=== PATIENT | female | born 1945 | race Caucasian/White ===

== ENCOUNTER 2019-07-18 10:48 | Observation (INO) | payer MEDICARE ==
[~2019-07-18] VITALS: Ht 170.2 cm; Wt 81.8 kg
--- NOTE | 2019-07-18 11:04 | PHYS DOC ---
Adult General HPI HPI Patient is a 73 year old female who was brought here by EMS due to altered mental status. Per report patient could not be awakened by her , she was acting confused, right-sided weakness. Patient has history of diabetes, she is on metformin and glyburide. SHe also has history of HEART valve replacement, history hypertension. She went to bed last night, was normal. Patient ate dinner last night as well. Patient had been on prednisone lately, so she did not eat much because she is worried about gaining weight from taking prednisone. EMS was called, they checked her blood sugar it was 28. She was given sugar pill through her mouth, her blood sugar went up to 38, she became more awake , alert, started talking normally and was able to move her right side. She denies any abdominal pain, no chest pain, no trouble breathing. Patient said she woke up last Tuesday with left eye swelling and with blood in her conjunctiva. Patient is on 500 mg metformin QID AND 10 MG GLIMERIDE IN AM. All other ROS is negative unless otherwise noted in HPI Review of Systems Review of Systems See above Current Medications Current Medications Current Medications Medications (Trade) Dose Ordered Sig/Aidan Start Time Stop Time Status Last Admin Dose Admin Dextrose (Dextrose 50%-Water Syringe) 25 gm 1X ONCE 07/18/19 11:15 07/18/19 11:56 DC 07/18/19 11:29 25 GM Fluconazole (Diflucan) 100 mg 1X ONCE 07/18/19 13:00 07/18/19 13:01 DC Allergies Allergies Allergies Coded Allergies Type Severity Reaction Last Updated Verified Penicillins Allergy Intermediate 07/18/19 Yes Tetracyclines Allergy Intermediate rash 07/18/19 Yes adhesive tape Allergy Intermediate rash 07/18/19 Yes lisinopril Allergy Intermediate cough 07/18/19 Yes sulfamethoxazole Allergy Intermediate 07/18/19 Yes trimethoprim Allergy Intermediate 07/18/19 Yes Physical Exam Physical Exam See above Constitutional: Well developed, well nourished, no acute distress, non-toxic appearance. [] HENT: Normocephalic, atraumatic, bilateral external ears normal, oropharynx moist, no oral exudates, nose normal. [] Eyes: PERRLA, EOMI, LEFT CONJUNCTIVAL INJECTION WITH SUBCONJUNCTIVAL HEMORRHAGE. Neck: Normal range of motion, no tenderness, supple, no stridor. [] Cardiovascular:Heart rate regular rhythm, no murmur [] Lungs & Thorax: Bilateral breath sounds clear to auscultation [] Abdomen: Bowel sounds normal, soft, no tenderness, no masses, no pulsatile masses. [] Skin: Warm, dry, no erythema, no rash. [] Back: No tenderness, no CVA tenderness. [] Extremities: No tenderness, no cyanosis, no clubbing, ROM intact, no edema. [] Neurologic: Alert and oriented X 3, normal motor function, normal sensory function, no focal deficits noted. [] Psychologic: Affect normal, judgement normal, mood normal. [] Current Patient Data Vital Signs Vital Signs Date Time Temp Pulse Resp B/P (MAP) Pulse Ox O2 Delivery O2 Flow Rate FiO2 07/18/19 10:48 97.5 82 20 107/88 (94) 98 Room Air 97.5 Lab Values Laboratory Tests Test 07/18/19 10:50 07/18/19 11:00 07/18/19 12:10 07/18/19 12:12 Glucose (Fingerstick) 25 mg/dL (70-99) *L 203 mg/dL (70-99) H White Blood Count 6.4 x10^3/uL (4.0-11.0) Red Blood Count 3.26 x10^6/uL (3.50-5.40) L Hemoglobin 11.2 g/dL (12.0-15.5) L Hematocrit 34.4 % (36.0-47.0) L Mean Corpuscular Volume 105 fL (79-100) H Mean Corpuscular Hemoglobin 34 pg (25-35) Mean Corpuscular Hemoglobin Concent 33 g/dL (31-37) Red Cell Distribution Width 18.0 % (11.5-14.5) H Platelet Count 185 x10^3/uL (140-400) Neutrophils (%) (Auto) 83 % (31-73) H Lymphocytes (%) (Auto) 10 % (24-48) L Monocytes (%) (Auto) 6 % (0-9) Eosinophils (%) (Auto) 1 % (0-3) Basophils (%) (Auto) 1 % (0-3) Neutrophils # (Auto) 5.4 x10^3/uL (1.8-7.7) Lymphocytes # (Auto) 0.7 x10^3/uL (1.0-4.8) L Monocytes # (Auto) 0.4 x10^3/uL (0.0-1.1) Eosinophils # (Auto) 0.0 x10^3/uL (0.0-0.7) Basophils # (Auto) 0.0 x10^3/uL (0.0-0.2) Prothrombin Time 11.9 SEC (11.7-14.0) Prothrombin Time INR 0.9 (0.8-1.1) Activated Partial Thromboplast Time 27 SEC (24-38) Sodium Level 142 mmol/L (136-145) Potassium Level 4.0 mmol/L (3.5-5.1) Chloride Level 105 mmol/L (98-107) Carbon Dioxide Level 28 mmol/L (21-32) Anion Gap 9 (6-14) Blood Urea Nitrogen 42 mg/dL (7-20) H Creatinine 1.0 mg/dL (0.6-1.0) Estimated GFR (Cockcroft-Gault) 54.5 BUN/Creatinine Ratio 42 (6-20) H Glucose Level 124 mg/dL (70-99) H Calcium Level 9.3 mg/dL (8.5-10.1) Magnesium Level 1.6 mg/dL (1.8-2.4) L Total Bilirubin 0.4 mg/dL (0.2-1.0) Aspartate Amino Transferase (AST) 59 U/L (15-37) H Alanine Aminotransferase (ALT) 90 U/L (14-59) H Alkaline Phosphatase 132 U/L (46-116) H Troponin I Quantitative 0.044 ng/mL (0.000-0.055) LL-Vdj-R-Type Natriuretic Peptide 241 pg/mL (0-124) H Total Protein 8.5 g/dL (6.4-8.2) H Albumin 2.8 g/dL (3.4-5.0) L Albumin/Globulin Ratio 0.5 (1.0-1.7) L Urine Collection Type Unknown Urine Color Yellow Urine Clarity Clear Urine pH 6.5 Urine Specific [place] 1.025 Urine Protein Negative mg/dL (NEG-TRACE) Urine Glucose (UA) 500 mg/dL (NEG) Urine Ketones (Stick) Negative mg/dL (NEG) Urine Blood Negative (NEG) Urine Nitrite Negative (NEG) Urine Bilirubin Negative (NEG) Urine Urobilinogen Dipstick 0.2 mg/dL (0.2 mg/dL) Urine Leukocyte Esterase Moderate (NEG) Urine RBC Occ /HPF (0-2) Urine WBC 11-20 /HPF (0-4) Urine Squamous Epithelial Cells Many /LPF Urine Bacteria Many /HPF (0-FEW) Urine Mucus Slight /LPF Urine Yeast Present /HPF Laboratory Tests 07/18/19 11:00 Laboratory Tests 07/18/19 11:00 EKG EKG [EKG was read by this doctor at 1120, heart rate of 84 beats per minutes, sinus rhythm, no ST elevation. Radiology/Procedures Radiology/Procedures [][facility] [address] [place], [place] [id number] IMAGING REPORT Signed PATIENT: FLOYD SARAH ACCOUNT: [id number] : 1945 LOCATION: ER AGE: 73 SEX: F EXAM STATUS: REG ER ORD. PHYSICIAN: PAVAN ROYAL DO REASON: altered mental status, slurred speech PROCEDURE: CT HEAD WO CONTRAST CT HEAD WITHOUT CONTRAST 07/18/2019 11:53 AM Indication: Altered mental status, slurred speech Comparison: None Procedure: Multidetector CT imaging of the head was performed without the administration of contrast. Findings: No evidence of acute intracranial hemorrhage is identified. No evidence of subacute territorial infarction is seen. Note that CT is limited for evaluation of acute ischemia. If there is continued clinical concern for acute ischemia, MRI offers more sensitive evaluation. There is no acute mass effect or midline shift. The ventricles and basilar cisterns have an unremarkable configuration. No abnormal extra-axial fluid collections are identified. Abnormal mucosal thickening is seen within the right frontal sinus, ethmoid air cells, sphenoid sinuses bilaterally, and partially visualized maxillary sinuses. Probable postsurgical changes to the maxillary sinuses noted. Mild leftward septal deviation appears to be present. Correlate with clinical history. IMPRESSION: 1. No evidence of acute intracranial abnormality 2. Changes of chronic sinus disease as described CT DOSING PQRS STATEMENT: One or more of the following individualized dose reduction techniques were utilized for this examination: 1. Automated exposure control 2. Adjustment of the mA and/or kV according to patient size 3. Use of iterative reconstruction technique Electronically signed by: Hiram Fam MD (07/18/2019 12:07 PM) [id number] DICTATED and SIGNED BY: HIRAM FAM MD DATE: 07/18/19 1200 Course & Med Decision Making Course & Med Decision Making Pertinent Labs and Imaging studies reviewed. (See chart for details) Patient is on long acting diabetic medication, will admit her for observation. Dragon Disclaimer Dragon Disclaimer This electronic medical record was generated, in whole or in part, using a voice recognition dictation system. Departure Departure Impression: Primary Impression: Hypoglycemia associated with type 2 diabetes mellitus Disposition: ADMITTED INPATIENT Admitting Physician: ALICE (DR. DOMINGUEZ) Condition: STABLE PAVAN ROYAL DO Jul 18, 2019 11:04
[2019-07-18] MEDS ORDERED: DEXTROSE 50% 25 GM / 50ML DISP.SYRIN. IV ONE (11:15)
[2019-07-18 11:23] LABS: BASO % 1 % (0-3); EOS % 1 % (0-3); HEMATOCRIT 34.4 % (36.0-47.0); HEMOGLOBIN 11.2 g/dL (12.0-15.5); LYMPH # 0.7 x10^3/uL (1.0-4.8); LYMPH % 10 % (24-48); MEAN CORPUSCULAR HEMOGLOBIN 34 pg (25-35); MEAN CORPUSCULAR HGB CONC 33 g/dL (31-37); MEAN CORPUSCULAR VOLUME 105 fL (79-100); MONO # 0.4 x10^3/uL (0.0-1.1); MONO % 6 % (0-9); NEUT # 5.4 x10^3/uL (1.8-7.7); NEUT % 83 % (31-73); PLATELET COUNT 185 x10^3/uL (140-400); RED BLOOD COUNT 3.26 x10^6/uL (3.50-5.40); WHITE BLOOD COUNT 6.4 x10^3/uL (4.0-11.0)
[2019-07-18 11:29] LABS: CALCIUM 9.3 mg/dL (8.5-10.1); GFR 54.5
--- NOTE | 2019-07-18 11:31 | EKG ---
[facility] [address] [place] [address] Test Date: 2019-07-18 Test Time: 11:19:51 Pat Name: FLOYD SARAH Department: Room: Gender: F [employer]: : 1945 Requested By: PAVAN ROYAL Order Number: [id number] Reading MD: Measurements Intervals [place] Rate: 84 P: 11 MO: 138 QRS: 169 QRSD: 26 T: -37 QT: 364 QTc: 433 Interpretive Statements SINUS RHYTHM ABNORMAL RIGHT AXIS DEVIATION LVH WITH REPOLARIZATION ABNORMALITY QRS(T) CONTOUR ABNORMALITY CONSIDER ANTEROSEPTAL MYOCARDIAL DAMAGE ABNORMAL ECG RI6.01 No previous ECG available for comparison
[2019-07-18 11:34] LABS: ALBUMIN 2.8 g/dL (3.4-5.0); ALBUMIN/GLOBULIN RATIO 0.5 (1.0-1.7); MAGNESIUM 1.6 mg/dL (1.8-2.4); TOTAL BILIRUBIN 0.4 mg/dL (0.2-1.0); TOTAL PROTEIN 8.5 g/dL (6.4-8.2)
--- NOTE | 2019-07-18 11:36 | RAD ---
CHEST AP ONLY Clinical Indication: Shortness of breath Comparison: None. Findings: Portable erect frontal view chest was obtained. Right-sided infusion port catheter port terminates overlying the superior cavoatrial junction. Triple lead left-sided pacemaker is present. Leads are intact and appear to be in place on the basis of the frontal view provided. The cardiomediastinal silhouette is normal. Lungs are clear. There is no pneumothorax. No pleural effusion is appreciated. No acute bone abnormality. IMPRESSION: No acute cardiopulmonary process. Electronically signed by: Parth Hall MD (07/18/2019 11:33 AM) [facility]
[2019-07-18 11:46] LABS: PROTHROMBIN TIME PATIENT 11.9 SEC (11.7-14.0)
--- NOTE | 2019-07-18 12:09 | RAD ---
CT HEAD WITHOUT CONTRAST 07/18/2019 11:53 AM Indication: Altered mental status, slurred speech Comparison: None Procedure: Multidetector CT imaging of the head was performed without the administration of contrast. Findings: No evidence of acute intracranial hemorrhage is identified. No evidence of subacute territorial infarction is seen. Note that CT is limited for evaluation of acute ischemia. If there is continued clinical concern for acute ischemia, MRI offers more sensitive evaluation. There is no acute mass effect or midline shift. The ventricles and basilar cisterns have an unremarkable configuration. No abnormal extra-axial fluid collections are identified. Abnormal mucosal thickening is seen within the right frontal sinus, ethmoid air cells, sphenoid sinuses bilaterally, and partially visualized maxillary sinuses. Probable postsurgical changes to the maxillary sinuses noted. Mild leftward septal deviation appears to be present. Correlate with clinical history. IMPRESSION: 1. No evidence of acute intracranial abnormality 2. Changes of chronic sinus disease as described CT DOSING PQRS STATEMENT: One or more of the following individualized dose reduction techniques were utilized for this examination: 1. Automated exposure control 2. Adjustment of the mA and/or kV according to patient size 3. Use of iterative reconstruction technique Electronically signed by: Hiram Coto MD (07/18/2019 12:07 PM) [facility]
[2019-07-18 12:29] LABS: BILIRUBIN,URINE NEGATIVE (NEG); CLARITY,URINE CLEAR; COLOR,URINE YELLOW; NITRITE,URINE NEGATIVE (NEG); PH,URINE 6.5; PROTEIN,URINE NEGATIVE (NEG-TRACE); UROBILINOGEN,URINE 0.2 mg/dL (0.2 mg/dL)
[2019-07-18 12:42] LABS: BACTERIA,URINE MANY /HPF (0-FEW); RBC,URINE OCC /HPF (0-2); SQUAMOUS EPITHELIAL CELL,UR MANY /LPF
[2019-07-18 12:43] LABS: YEAST,URINE PRESENT /HPF
[2019-07-18] MEDS ORDERED: FLUCONAZOLE 100 MG TABLET. PO ONE (13:00)
--- NOTE | 2019-07-18 14:38 | PDOC1 ---
History and Physical Date of Admission: Date of Admission DATE: 07/18/19 TIME: 14:36 Chief Complaint: Problems: (1) Hypoglycemia associated with type 2 diabetes mellitus Chief Complain: Mental status change with hypoglycemia of 23 History of Present Illness: HPI: This is an elderly patient who is on a sulfonylurea and metformin Basically she developed mental status change and her found her He called ambulance a discovered she had a glucose of 23 P Per report patient could not be awakened by her , she was acting confused, right-sided weakness. Patient has history of diabetes, she is on metformin and glyburide. SHe also has history of HEART valve replacement, history hypertension. She went to bed last night, was normal. Patient ate di nner last night as well. Patient had been on prednisone lately, so she did not eat much because she is worried about gaining weight from taking prednisone. EMS was called, they checked her blood sugar it was 28. She was given sugar pill through her mouth, her blood sugar went up to 38, she became more awake , alert, started talking normally and was able to move her right side. She denies any abdominal pain, no chest pain, no trouble breathing. Patient said she woke up last Tuesday with left eye swelling and with blood in her conjunctiva. Patient is on 500 mg metformin QID AND 10 MG GLIMERIDE IN AM. Past Medical/Surgical History: PMH/PSH: Diabetes hypertension hyperlipidemia Allergies: Allergies: Coded Allergies: Penicillins (Verified Allergy, Intermediate, 07/18/19) rash Tetracyclines (Verified Allergy, Intermediate, rash, 07/18/19) adhesive tape (Verified Allergy, Intermediate, rash, 07/18/19) lisinopril (Verified Allergy, Intermediate, cough, 07/18/19) sulfamethoxazole (Verified Allergy, Intermediate, 07/18/19) rash trimethoprim (Verified Allergy, Intermediate, 07/18/19) rash Family History: Family History: Hypertension diabetes Social History: Social Hisoty: She does not drink smoke or take drugs Current Medications: Current Medications Current Medications Dextrose (Dextrose 50%-Water Syringe) 25 gm 1X ONCE IV Last administered on 07/18/19at 11:29; Start 07/18/19 at 11:15; Stop 07/18/19 at 11:56; Status DC Fluconazole (Diflucan) 100 mg 1X ONCE PO ; Start 07/18/19 at 13:00; Stop 07/18/19 at 13:01; Status DC ROS: Review of Systems Review of System REVIEW OF SYSTEMS: GENERAL: Denies weakness SKIN: No bruising, hair changes or rashes. EYES: No blurred, double or loss of vision. NOSE AND THROAT: No history of nosebleeds, hoarseness or sore throat. HEART: No history of palpitations, chest pain or shortness of breath on exertion. LUNGS: Denies cough, hemoptysis, wheezing or shortness of breath. GASTROINTESTINAL: Denies changes in appetite, nausea, vomiting, diarrhea or constipation. GENITOURINARY: No history of frequency, urgency, hesitancy or nocturia. NEUROLOGIC: Denies history of numbness, tingling, tremor or weakness. PSYCHIATRIC: No history of panic, anxiety or depression. ENDOCRINE: No history of heat or cold intolerance, polyuria or polydipsia. EXTREMITIES: Denies muscle weakness, joint pain, pain on walking or stiffness. Physical Exam: Vital Signs: Vital Signs Date Time Temp Pulse Resp B/P (MAP) Pulse Ox O2 Delivery O2 Flow Rate FiO2 07/18/19 14:00 84 18 123/78 (93) 97 Room Air 07/18/19 10:48 97.5 97.5 Physcial Exam: GEN.: No apparent distress. Alert and oriented. HEENT: Head is normocephalic, atraumatic NECK: Supple, no JVD LUNGS: Clear to auscultation without rhonchi or wheezing HEART: RRR, S1, S2 present. Peripheral pulses intact ABDOMEN: Soft, nontender. Positive bowel sounds no organomegaly EXTREMITIES: Without any cyanosis, clubbing, or edema. Pedal pulses intact NEUROLOGIC: Normal speech, normal tone. A&O x 3 PSYCHIATRIC: Normal affect, normal mood. Stable SKIN: No ulcerations or rashes VASCULAR: Good capillary refill Labs: Labs: Laboratory Tests Test 07/18/19 10:50 07/18/19 11:00 07/18/19 12:10 07/18/19 12:12 Glucose (Fingerstick) 25 mg/dL (70-99) 203 mg/dL (70-99) White Blood Count 6.4 x10^3/uL (4.0-11.0) Red Blood Count 3.26 x10^6/uL (3.50-5.40) Hemoglobin 11.2 g/dL (12.0-15.5) Hematocrit 34.4 % (36.0-47.0) Mean Corpuscular Volume 105 fL (79-100) Mean Corpuscular Hemoglobin 34 pg (25-35) Mean Corpuscular Hemoglobin Concent 33 g/dL (31-37) Red Cell Distribution Width 18.0 % (11.5-14.5) Platelet Count 185 x10^3/uL (140-400) Neutrophils (%) (Auto) 83 % (31-73) Lymphocytes (%) (Auto) 10 % (24-48) Monocytes (%) (Auto) 6 % (0-9) Eosinophils (%) (Auto) 1 % (0-3) Basophils (%) (Auto) 1 % (0-3) Neutrophils # (Auto) 5.4 x10^3/uL (1.8-7.7) Lymphocytes # (Auto) 0.7 x10^3/uL (1.0-4.8) Monocytes # (Auto) 0.4 x10^3/uL (0.0-1.1) Eosinophils # (Auto) 0.0 x10^3/uL (0.0-0.7) Basophils # (Auto) 0.0 x10^3/uL (0.0-0.2) Prothrombin Time 11.9 SEC (11.7-14.0) Prothromb Time International Ratio 0.9 (0.8-1.1) Activated Partial Thromboplast Time 27 SEC (24-38) Sodium Level 142 mmol/L (136-145) Potassium Level 4.0 mmol/L (3.5-5.1) Chloride Level 105 mmol/L (98-107) Carbon Dioxide Level 28 mmol/L (21-32) Anion Gap 9 (6-14) Blood Urea Nitrogen 42 mg/dL (7-20) Creatinine 1.0 mg/dL (0.6-1.0) Estimated GFR (Cockcroft-Gault) 54.5 BUN/Creatinine Ratio 42 (6-20) Glucose Level 124 mg/dL (70-99) Calcium Level 9.3 mg/dL (8.5-10.1) Magnesium Level 1.6 mg/dL (1.8-2.4) Total Bilirubin 0.4 mg/dL (0.2-1.0) Aspartate Amino Transf (AST/SGOT) 59 U/L (15-37) Alanine Aminotransferase (ALT/SGPT) 90 U/L (14-59) Alkaline Phosphatase 132 U/L (46-116) Troponin I Quantitative 0.044 ng/mL (0.000-0.055) WB-Lqo-V-Type Natriuretic Peptide 241 pg/mL (0-124) Total Protein 8.5 g/dL (6.4-8.2) Albumin 2.8 g/dL (3.4-5.0) Albumin/Globulin Ratio 0.5 (1.0-1.7) Urine Collection Type Unknown Urine Color Yellow Urine Clarity Clear Urine pH 6.5 Urine Specific [place] 1.025 Urine Protein Negative mg/dL (NEG-TRACE) Urine Glucose (UA) 500 mg/dL (NEG) Urine Ketones (Stick) Negative mg/dL (NEG) Urine Blood Negative (NEG) Urine Nitrite Negative (NEG) Urine Bilirubin Negative (NEG) Urine Urobilinogen Dipstick 0.2 mg/dL (0.2 mg/dL) Urine Leukocyte Esterase Moderate (NEG) Urine RBC Occ /HPF (0-2) Urine WBC 11-20 /HPF (0-4) Urine Squamous Epithelial Cells Many /LPF Urine Bacteria Many /HPF (0-FEW) Urine Mucus Slight /LPF Urine Yeast Present /HPF Test 07/18/19 14:01 Glucose (Fingerstick) 228 mg/dL (70-99) Laboratory Tests Test 07/18/19 10:50 07/18/19 11:00 07/18/19 12:10 07/18/19 12:12 Glucose (Fingerstick) 25 mg/dL (70-99) 203 mg/dL (70-99) White Blood Count 6.4 x10^3/uL (4.0-11.0) Red Blood Count 3.26 x10^6/uL (3.50-5.40) Hemoglobin 11.2 g/dL (12.0-15.5) Hematocrit 34.4 % (36.0-47.0) Mean Corpuscular Volume 105 fL (79-100) Mean Corpuscular Hemoglobin 34 pg (25-35) Mean Corpuscular Hemoglobin Concent 33 g/dL (31-37) Red Cell Distribution Width 18.0 % (11.5-14.5) Platelet Count 185 x10^3/uL (140-400) Neutrophils (%) (Auto) 83 % (31-73) Lymphocytes (%) (Auto) 10 % (24-48) Monocytes (%) (Auto) 6 % (0-9) Eosinophils (%) (Auto) 1 % (0-3) Basophils (%) (Auto) 1 % (0-3) Neutrophils # (Auto) 5.4 x10^3/uL (1.8-7.7) Lymphocytes # (Auto) 0.7 x10^3/uL (1.0-4.8) Monocytes # (Auto) 0.4 x10^3/uL (0.0-1.1) Eosinophils # (Auto) 0.0 x10^3/uL (0.0-0.7) Basophils # (Auto) 0.0 x10^3/uL (0.0-0.2) Prothrombin Time 11.9 SEC (11.7-14.0) Prothromb Time International Ratio 0.9 (0.8-1.1) Activated Partial Thromboplast Time 27 SEC (24-38) Sodium Level 142 mmol/L (136-145) Potassium Level 4.0 mmol/L (3.5-5.1) Chloride Level 105 mmol/L (98-107) Carbon Dioxide Level 28 mmol/L (21-32) Anion Gap 9 (6-14) Blood Urea Nitrogen 42 mg/dL (7-20) Creatinine 1.0 mg/dL (0.6-1.0) Estimated GFR (Cockcroft-Gault) 54.5 BUN/Creatinine Ratio 42 (6-20) Glucose Level 124 mg/dL (70-99) Calcium Level 9.3 mg/dL (8.5-10.1) Magnesium Level 1.6 mg/dL (1.8-2.4) Total Bilirubin 0.4 mg/dL (0.2-1.0) Aspartate Amino Transf (AST/SGOT) 59 U/L (15-37) Alanine Aminotransferase (ALT/SGPT) 90 U/L (14-59) Alkaline Phosphatase 132 U/L (46-116) Troponin I Quantitative 0.044 ng/mL (0.000-0.055) PQ-Esa-D-Type Natriuretic Peptide 241 pg/mL (0-124) Total Protein 8.5 g/dL (6.4-8.2) Albumin 2.8 g/dL (3.4-5.0) Albumin/Globulin Ratio 0.5 (1.0-1.7) Urine Collection Type Unknown Urine Color Yellow Urine Clarity Clear Urine pH 6.5 Urine Specific [place] 1.025 Urine Protein Negative mg/dL (NEG-TRACE) Urine Glucose (UA) 500 mg/dL (NEG) Urine Ketones (Stick) Negative mg/dL (NEG) Urine Blood Negative (NEG) Urine Nitrite Negative (NEG) Urine Bilirubin Negative (NEG) Urine Urobilinogen Dipstick 0.2 mg/dL (0.2 mg/dL) Urine Leukocyte Esterase Moderate (NEG) Urine RBC Occ /HPF (0-2) Urine WBC 11-20 /HPF (0-4) Urine Squamous Epithelial Cells Many /LPF Urine Bacteria Many /HPF (0-FEW) Urine Mucus Slight /LPF Urine Yeast Present /HPF Test 07/18/19 14:01 Glucose (Fingerstick) 228 mg/dL (70-99) Images: Images Within normal limits Assessment/Plan Assessment/Plan Symptomatic hypoglycemia Plan Cardiac monitoring Hold her sulfonylurea is in metformin Frequent Accu-Cheks Continue her other home medications DVT prophylaxis Full code Hope to discharge in a day or 2 once her glucoses have normalized SHARI DOMINGUEZ III DO Jul 18, 2019 14:38
--- NOTE | 2019-07-18 15:00 | NUR ---
This RN received report from CHELITA Torres in ER. Pt arrived on unit to room 588 by bed. Pt oriented to call light and room. Pt has no concerns, will continue to monitor.
[2019-07-18 19:06] VITALS: BP 132/83
[2019-07-18] MEDS ORDERED: ESTR0.5T PO (20:58)
[2019-07-18] MEDS ORDERED: PANT20TA2 PO (20:58)
[2019-07-18] MEDS ORDERED: LEVO25TA4 PO (20:58)
[2019-07-18] MEDS ORDERED: ASPI-630 PO (20:58)
[2019-07-18] MEDS ORDERED: GLIM1TAB3 PO (20:58)
[2019-07-18] MEDS ORDERED: MAGN400T44 PO (20:58)
[2019-07-18] MEDS ORDERED: DIAZ5TAB4 PO (20:58)
[2019-07-18] MEDS ORDERED: SPIR25TA5 PO (20:58)
[2019-07-18] MEDS ORDERED: PRED20TA PO (20:58)
[2019-07-18] MEDS ORDERED: METO100T7 PO (20:58)
[2019-07-18] MEDS ORDERED: ALLO100T PO (20:58)
[2019-07-18] MEDS ORDERED: FURO40TA4 PO (20:58)
[2019-07-18] MEDS ORDERED: LOSA-73 PO (20:58)
[2019-07-18] MEDS ORDERED: FOLI20CA PO (20:58)
[2019-07-18] MEDS ORDERED: METF500T11 PO (20:58)
[2019-07-18 23:00] VITALS: BP 117/55
[2019-07-19 03:00] VITALS: BP 146/86
[2019-07-19 07:00] VITALS: BP 94/57
--- NOTE | 2019-07-19 08:44 | PDOC ---
PROGRESS NOTES Chief Complaint Chief Complaint Symptomatic hypoglycemia Acute Encephalopathy TIA DM2 Statin-induced myopathy HLD HTN Heart valve surgery Right ocular conjunctivitis Hypomagnesemia Plan Cardiac monitoring Hold her sulfonylurea is in metformin Frequent Accu-Cheks Continue her other home medications DVT prophylaxis Full code Hope to discharge in next day once her glucoses have normalized, needs inpatient for continued dextrose for today, will get D5 with her magnesium infusion History of Present Illness History of Present Illness Ms Jones is a 73yo F w/ PMHx DM2, statin-induced myopathy, HLD, HTN, heart valve surgery who developed acute confusion, right arm weakness, slurred speech and facial droop. Once EMS arrived she was noted with glucose of 23 despite eating and taking chronic prednisone lately. Oral dextrose increased her blood sugar went up to 38. Her blood glucose dropped to 25 by the time she was in ED, was started on dextrose infusion, after whic she became more awake , alert, started talking normally and was able to move her right side. She denies any abdominal pain, no chest pain, no trouble breathing. Patient said she woke up last Tuesday with left eye swelling and with blood in her conjunctiva. Patient is on 500 mg metformin QID AND 10 MG GLIMERIDE IN AM. Admitted for likely sulfonylurea toxicity on D5 infusion. Maintained glucose >100mg/dL overnight. Eye still swollen. Mag level 1.6. She is a bit anxious to leave but fearful of further hypoglycemia given her TIA symptoms initially. Vitals Vitals Vital Signs Date Time Temp Pulse Resp B/P (MAP) Pulse Ox O2 Delivery O2 Flow Rate FiO2 07/19/19 03:00 98.9 102 18 146/86 (106) 96 Room Air 98.9 Physical Exam General: Alert, Oriented X3, Cooperative Heart: Regular rate, Normal S1, Normal S2 Lungs: Clear, Wheezing Abdomen: Normal bowel sounds, Soft Extremities: No clubbing, No cyanosis Skin: No rashes, No breakdown Labs LABS Laboratory Tests Test 07/18/19 10:50 07/18/19 11:00 07/18/19 12:10 07/18/19 12:12 Glucose (Fingerstick) 25 mg/dL (70-99) 203 mg/dL (70-99) White Blood Count 6.4 x10^3/uL (4.0-11.0) Red Blood Count 3.26 x10^6/uL (3.50-5.40) Hemoglobin 11.2 g/dL (12.0-15.5) Hematocrit 34.4 % (36.0-47.0) Mean Corpuscular Volume 105 fL (79-100) Mean Corpuscular Hemoglobin 34 pg (25-35) Mean Corpuscular Hemoglobin Concent 33 g/dL (31-37) Red Cell Distribution Width 18.0 % (11.5-14.5) Platelet Count 185 x10^3/uL (140-400) Neutrophils (%) (Auto) 83 % (31-73) Lymphocytes (%) (Auto) 10 % (24-48) Monocytes (%) (Auto) 6 % (0-9) Eosinophils (%) (Auto) 1 % (0-3) Basophils (%) (Auto) 1 % (0-3) Neutrophils # (Auto) 5.4 x10^3/uL (1.8-7.7) Lymphocytes # (Auto) 0.7 x10^3/uL (1.0-4.8) Monocytes # (Auto) 0.4 x10^3/uL (0.0-1.1) Eosinophils # (Auto) 0.0 x10^3/uL (0.0-0.7) Basophils # (Auto) 0.0 x10^3/uL (0.0-0.2) Prothrombin Time 11.9 SEC (11.7-14.0) Prothromb Time International Ratio 0.9 (0.8-1.1) Activated Partial Thromboplast Time 27 SEC (24-38) Sodium Level 142 mmol/L (136-145) Potassium Level 4.0 mmol/L (3.5-5.1) Chloride Level 105 mmol/L (98-107) Carbon Dioxide Level 28 mmol/L (21-32) Anion Gap 9 (6-14) Blood Urea Nitrogen 42 mg/dL (7-20) Creatinine 1.0 mg/dL (0.6-1.0) Estimated GFR (Cockcroft-Gault) 54.5 BUN/Creatinine Ratio 42 (6-20) Glucose Level 124 mg/dL (70-99) Calcium Level 9.3 mg/dL (8.5-10.1) Magnesium Level 1.6 mg/dL (1.8-2.4) Total Bilirubin 0.4 mg/dL (0.2-1.0) Aspartate Amino Transf (AST/SGOT) 59 U/L (15-37) Alanine Aminotransferase (ALT/SGPT) 90 U/L (14-59) Alkaline Phosphatase 132 U/L (46-116) Troponin I Quantitative 0.044 ng/mL (0.000-0.055) BE-Qmy-I-Type Natriuretic Peptide 241 pg/mL (0-124) Total Protein 8.5 g/dL (6.4-8.2) Albumin 2.8 g/dL (3.4-5.0) Albumin/Globulin Ratio 0.5 (1.0-1.7) Urine Collection Type Unknown Urine Color Yellow Urine Clarity Clear Urine pH 6.5 Urine Specific [place] 1.025 Urine Protein Negative mg/dL (NEG-TRACE) Urine Glucose (UA) 500 mg/dL (NEG) Urine Ketones (Stick) Negative mg/dL (NEG) Urine Blood Negative (NEG) Urine Nitrite Negative (NEG) Urine Bilirubin Negative (NEG) Urine Urobilinogen Dipstick 0.2 mg/dL (0.2 mg/dL) Urine Leukocyte Esterase Moderate (NEG) Urine RBC Occ /HPF (0-2) Urine WBC 11-20 /HPF (0-4) Urine Squamous Epithelial Cells Many /LPF Urine Bacteria Many /HPF (0-FEW) Urine Mucus Slight /LPF Urine Yeast Present /HPF Test 07/18/19 14:01 07/18/19 16:54 07/18/19 20:22 07/19/19 08:02 Glucose (Fingerstick) 228 mg/dL (70-99) 224 mg/dL (70-99) 175 mg/dL (70-99) 113 mg/dL (70-99) Assessment and Plan Assessmemt and Plan Problems Medical Problems: (1) Hypoglycemia associated with type 2 diabetes mellitus Status: Acute Comment Review of Relevant I have reviewed the following items nilo (where applicable) has been applied. Labs Laboratory Tests Test 07/18/19 10:50 07/18/19 11:00 07/18/19 12:10 07/18/19 12:12 Glucose (Fingerstick) 25 mg/dL (70-99) 203 mg/dL (70-99) White Blood Count 6.4 x10^3/uL (4.0-11.0) Red Blood Count 3.26 x10^6/uL (3.50-5.40) Hemoglobin 11.2 g/dL (12.0-15.5) Hematocrit 34.4 % (36.0-47.0) Mean Corpuscular Volume 105 fL (79-100) Mean Corpuscular Hemoglobin 34 pg (25-35) Mean Corpuscular Hemoglobin Concent 33 g/dL (31-37) Red Cell Distribution Width 18.0 % (11.5-14.5) Platelet Count 185 x10^3/uL (140-400) Neutrophils (%) (Auto) 83 % (31-73) Lymphocytes (%) (Auto) 10 % (24-48) Monocytes (%) (Auto) 6 % (0-9) Eosinophils (%) (Auto) 1 % (0-3) Basophils (%) (Auto) 1 % (0-3) Neutrophils # (Auto) 5.4 x10^3/uL (1.8-7.7) Lymphocytes # (Auto) 0.7 x10^3/uL (1.0-4.8) Monocytes # (Auto) 0.4 x10^3/uL (0.0-1.1) Eosinophils # (Auto) 0.0 x10^3/uL (0.0-0.7) Basophils # (Auto) 0.0 x10^3/uL (0.0-0.2) Prothrombin Time 11.9 SEC (11.7-14.0) Prothromb Time International Ratio 0.9 (0.8-1.1) Activated Partial Thromboplast Time 27 SEC (24-38) Sodium Level 142 mmol/L (136-145) Potassium Level 4.0 mmol/L (3.5-5.1) Chloride Level 105 mmol/L (98-107) Carbon Dioxide Level 28 mmol/L (21-32) Anion Gap 9 (6-14) Blood Urea Nitrogen 42 mg/dL (7-20) Creatinine 1.0 mg/dL (0.6-1.0) Estimated GFR (Cockcroft-Gault) 54.5 BUN/Creatinine Ratio 42 (6-20) Glucose Level 124 mg/dL (70-99) Calcium Level 9.3 mg/dL (8.5-10.1) Magnesium Level 1.6 mg/dL (1.8-2.4) Total Bilirubin 0.4 mg/dL (0.2-1.0) Aspartate Amino Transf (AST/SGOT) 59 U/L (15-37) Alanine Aminotransferase (ALT/SGPT) 90 U/L (14-59) Alkaline Phosphatase 132 U/L (46-116) Troponin I Quantitative 0.044 ng/mL (0.000-0.055) GT-Kuo-K-Type Natriuretic Peptide 241 pg/mL (0-124) Total Protein 8.5 g/dL (6.4-8.2) Albumin 2.8 g/dL (3.4-5.0) Albumin/Globulin Ratio 0.5 (1.0-1.7) Urine Collection Type Unknown Urine Color Yellow Urine Clarity Clear Urine pH 6.5 Urine Specific [place] 1.025 Urine Protein Negative mg/dL (NEG-TRACE) Urine Glucose (UA) 500 mg/dL (NEG) Urine Ketones (Stick) Negative mg/dL (NEG) Urine Blood Negative (NEG) Urine Nitrite Negative (NEG) Urine Bilirubin Negative (NEG) Urine Urobilinogen Dipstick 0.2 mg/dL (0.2 mg/dL) Urine Leukocyte Esterase Moderate (NEG) Urine RBC Occ /HPF (0-2) Urine WBC 11-20 /HPF (0-4) Urine Squamous Epithelial Cells Many /LPF Urine Bacteria Many /HPF (0-FEW) Urine Mucus Slight /LPF Urine Yeast Present /HPF Test 07/18/19 14:01 07/18/19 16:54 07/18/19 20:22 07/19/19 08:02 Glucose (Fingerstick) 228 mg/dL (70-99) 224 mg/dL (70-99) 175 mg/dL (70-99) 113 mg/dL (70-99) Laboratory Tests Test 07/18/19 10:50 07/18/19 11:00 07/18/19 12:10 07/18/19 12:12 Glucose (Fingerstick) 25 mg/dL (70-99) 203 mg/dL (70-99) White Blood Count 6.4 x10^3/uL (4.0-11.0) Red Blood Count 3.26 x10^6/uL (3.50-5.40) Hemoglobin 11.2 g/dL (12.0-15.5) Hematocrit 34.4 % (36.0-47.0) Mean Corpuscular Volume 105 fL (79-100) Mean Corpuscular Hemoglobin 34 pg (25-35) Mean Corpuscular Hemoglobin Concent 33 g/dL (31-37) Red Cell Distribution Width 18.0 % (11.5-14.5) Platelet Count 185 x10^3/uL (140-400) Neutrophils (%) (Auto) 83 % (31-73) Lymphocytes (%) (Auto) 10 % (24-48) Monocytes (%) (Auto) 6 % (0-9) Eosinophils (%) (Auto) 1 % (0-3) Basophils (%) (Auto) 1 % (0-3) Neutrophils # (Auto) 5.4 x10^3/uL (1.8-7.7) Lymphocytes # (Auto) 0.7 x10^3/uL (1.0-4.8) Monocytes # (Auto) 0.4 x10^3/uL (0.0-1.1) Eosinophils # (Auto) 0.0 x10^3/uL (0.0-0.7) Basophils # (Auto) 0.0 x10^3/uL (0.0-0.2) Prothrombin Time 11.9 SEC (11.7-14.0) Prothromb Time International Ratio 0.9 (0.8-1.1) Activated Partial Thromboplast Time 27 SEC (24-38) Sodium Level 142 mmol/L (136-145) Potassium Level 4.0 mmol/L (3.5-5.1) Chloride Level 105 mmol/L (98-107) Carbon Dioxide Level 28 mmol/L (21-32) Anion Gap 9 (6-14) Blood Urea Nitrogen 42 mg/dL (7-20) Creatinine 1.0 mg/dL (0.6-1.0) Estimated GFR (Cockcroft-Gault) 54.5 BUN/Creatinine Ratio 42 (6-20) Glucose Level 124 mg/dL (70-99) Calcium Level 9.3 mg/dL (8.5-10.1) Magnesium Level 1.6 mg/dL (1.8-2.4) Total Bilirubin 0.4 mg/dL (0.2-1.0) Aspartate Amino Transf (AST/SGOT) 59 U/L (15-37) Alanine Aminotransferase (ALT/SGPT) 90 U/L (14-59) Alkaline Phosphatase 132 U/L (46-116) Troponin I Quantitative 0.044 ng/mL (0.000-0.055) GV-Jlr-I-Type Natriuretic Peptide 241 pg/mL (0-124) Total Protein 8.5 g/dL (6.4-8.2) Albumin 2.8 g/dL (3.4-5.0) Albumin/Globulin Ratio 0.5 (1.0-1.7) Urine Collection Type Unknown Urine Color Yellow Urine Clarity Clear Urine pH 6.5 Urine Specific [place] 1.025 Urine Protein Negative mg/dL (NEG-TRACE) Urine Glucose (UA) 500 mg/dL (NEG) Urine Ketones (Stick) Negative mg/dL (NEG) Urine Blood Negative (NEG) Urine Nitrite Negative (NEG) Urine Bilirubin Negative (NEG) Urine Urobilinogen Dipstick 0.2 mg/dL (0.2 mg/dL) Urine Leukocyte Esterase Moderate (NEG) Urine RBC Occ /HPF (0-2) Urine WBC 11-20 /HPF (0-4) Urine Squamous Epithelial Cells Many /LPF Urine Bacteria Many /HPF (0-FEW) Urine Mucus Slight /LPF Urine Yeast Present /HPF Test 07/18/19 14:01 07/18/19 16:54 07/18/19 20:22 07/19/19 08:02 Glucose (Fingerstick) 228 mg/dL (70-99) 224 mg/dL (70-99) 175 mg/dL (70-99) 113 mg/dL (70-99) Medications Current Medications Dextrose (Dextrose 50%-Water Syringe) 25 gm 1X ONCE IV Last administered on 07/18/19at 11:29; Start 07/18/19 at 11:15; Stop 07/18/19 at 11:56; Status DC Fluconazole (Diflucan) 100 mg 1X ONCE PO Last administered on 07/18/19at 16:35; Start 07/18/19 at 13:00; Stop 07/18/19 at 13:01; Status DC Magnesium Sulfate 100 ml @ 25 mls/hr 1X ONCE IV ; Start 07/19/19 at 08:45; Stop 07/19/19 at 12:44; Status UNV Active Scripts Active Reported Diazepam 5 Mg Tablet 5 Mg PO DAILY Metoprolol Tartrate 100 Mg Tablet 100 Mg PO DAILY Losartan Potassium 50 Mg Tablet 50 Mg PO DAILY Aspirin 81 Mg Tab.chew 81 Mg PO DAILY Prednisone 20 Mg Tablet 10 Mg PO DAILYWBKFT Protonix (Pantoprazole Sodium) 20 Mg Tablet.dr 1 Tab PO DAILY Folic Acid 20 Mg Capsule 1 Cap PO DAILY 30 Days Furosemide 40 Mg Tablet 40 Mg PO DAILY Magnesium Oxide 400 Mg Tablet 400 Mg PO DAILY Glimepiride 1 Mg Tablet 2 Tab PO DAILYWBKFT Metformin Hcl Er (Metformin Hcl) 500 Mg Tab.er.24h 500 Mg PO BIDWMEALS Allopurinol 100 Mg Tablet 100 Mg PO BID Estradiol 0.5 Mg Tablet 0.5 Mg PO DAILY Spironolactone 25 Mg Tablet 25 Mg PO DAILY Levothyroxine Sodium 25 Mcg Tablet 75 Mcg PO DAILYAC PRN Vitals/I & O Vital Sign - Last 24 Hours 07/18/19 07/18/19 07/18/19 07/18/19 10:48 11:30 12:00 12:30 Temp 97.5 97.5 Pulse 82 84 82 92 Resp 20 20 20 20 B/P (MAP) 107/88 (94) 130/74 (92) 139/85 (103) 122/84 (97) Pulse Ox 98 99 99 97 O2 Delivery Room Air Room Air Room Air Room Air 07/18/19 07/18/19 07/18/19 07/18/19 13:00 13:30 14:00 16:00 Pulse 92 96 84 Resp 20 18 18 B/P (MAP) 117/79 (92) 120/80 (93) 123/78 (93) Pulse Ox 99 99 97 O2 Delivery Room Air Room Air Room Air Room Air 07/18/19 07/18/19 07/18/19 07/19/19 19:06 19:48 23:00 03:00 Temp 97.9 98.0 98.9 97.9 98.0 98.9 Pulse 99 93 102 Resp 18 17 18 B/P (MAP) 132/83 (99) 117/55 (75) 146/86 (106) Pulse Ox 96 96 96 O2 Delivery Room Air Room Air Room Air Room Air SARA ULRICH MD Jul 19, 2019 08:44
[2019-07-19] MEDS ORDERED: MAGNESIUM SULFATE 4GM 100 ML IV ONE (09:00)
[2019-07-19] MEDS ORDERED: LEVOTHYROXINE 75 MCG TABLET PO SCH (09:30)
[2019-07-19] MEDS ORDERED: LOSARTAN POTASSIUM 50 MG TABLET. PO SCH (09:30)
[2019-07-19] MEDS ORDERED: ASPIRIN CHEWABLE 81 MG TABLET. PO SCH (09:30)
[2019-07-19] MEDS ORDERED: SPIRONOLACTONE 25 MG TABLET PO SCH (09:30)
[2019-07-19] MEDS ORDERED: METOPROLOL TART IMMED RELEASE 25 MG TABLET. PO SCH (09:30)
[2019-07-19] MEDS ORDERED: predniSONE 10 MG TABLET PO SCH (09:30)
[2019-07-19] MEDS ORDERED: ALLOPURINOL 100 MG TABLET. PO SCH (09:30)
[2019-07-19] MEDS ORDERED: diazePAM 5 MG TABLET PO PRN (09:30)
[2019-07-19] MEDS ORDERED: MAGNESIUM OXIDE 400 MG TABLET PO SCH (09:30)
[2019-07-19] MEDS ORDERED: PANTOPRAZOLE 40 MG TABLET.DR. PO SCH (09:30)
[2019-07-19] MEDS ORDERED: FOLIC ACID 1 MG TABLET. PO SCH (09:30)
[2019-07-19 11:00] VITALS: BP 125/59
--- NOTE | 2019-07-19 14:08 | NUR ---
SW following for discharge planning. Discussed with RN, pt is from home with spouse. Per RN, pt gets around fine. RN advised no SW needs at this time. SW will continue to follow should any needs arise.
[2019-07-19 15:00] VITALS: BP 122/89
--- NOTE | 2019-07-19 17:00 | PDOC3 ---
Discharge Summary Visit Information Date of Admission: Jul 18, 2019 Date of Discharge: Jul 19, 2019 Admitting Diagnosis: Symptomatic hypoglycemia Final Diagnosis Problems Medical Problems: (1) Hypoglycemia associated with type 2 diabetes mellitus Status: Acute Brief Hospital Course Allergies Allergies Coded Allergies Type Severity Reaction Last Updated Verified Penicillins Allergy Intermediate 07/18/19 Yes Tetracyclines Allergy Intermediate rash 07/18/19 Yes adhesive tape Allergy Intermediate rash 07/18/19 Yes lisinopril Allergy Intermediate cough 07/18/19 Yes sulfamethoxazole Allergy Intermediate 07/18/19 Yes trimethoprim Allergy Intermediate 07/18/19 Yes Vital Signs Vital Signs Date Time Temp Pulse Resp B/P (MAP) Pulse Ox O2 Delivery O2 Flow Rate FiO2 07/19/19 15:00 97.7 104 18 122/89 (100) 97 97.7 07/19/19 08:00 Room Air Lab Results Laboratory Tests Test 07/18/19 10:50 07/18/19 11:00 07/18/19 12:10 07/18/19 12:12 Glucose (Fingerstick) 25 mg/dL (70-99) 203 mg/dL (70-99) White Blood Count 6.4 x10^3/uL (4.0-11.0) Red Blood Count 3.26 x10^6/uL (3.50-5.40) Hemoglobin 11.2 g/dL (12.0-15.5) Hematocrit 34.4 % (36.0-47.0) Mean Corpuscular Volume 105 fL (79-100) Mean Corpuscular Hemoglobin 34 pg (25-35) Mean Corpuscular Hemoglobin Concent 33 g/dL (31-37) Red Cell Distribution Width 18.0 % (11.5-14.5) Platelet Count 185 x10^3/uL (140-400) Neutrophils (%) (Auto) 83 % (31-73) Lymphocytes (%) (Auto) 10 % (24-48) Monocytes (%) (Auto) 6 % (0-9) Eosinophils (%) (Auto) 1 % (0-3) Basophils (%) (Auto) 1 % (0-3) Neutrophils # (Auto) 5.4 x10^3/uL (1.8-7.7) Lymphocytes # (Auto) 0.7 x10^3/uL (1.0-4.8) Monocytes # (Auto) 0.4 x10^3/uL (0.0-1.1) Eosinophils # (Auto) 0.0 x10^3/uL (0.0-0.7) Basophils # (Auto) 0.0 x10^3/uL (0.0-0.2) Prothrombin Time 11.9 SEC (11.7-14.0) Prothromb Time International Ratio 0.9 (0.8-1.1) Activated Partial Thromboplast Time 27 SEC (24-38) Sodium Level 142 mmol/L (136-145) Potassium Level 4.0 mmol/L (3.5-5.1) Chloride Level 105 mmol/L (98-107) Carbon Dioxide Level 28 mmol/L (21-32) Anion Gap 9 (6-14) Blood Urea Nitrogen 42 mg/dL (7-20) Creatinine 1.0 mg/dL (0.6-1.0) Estimated GFR (Cockcroft-Gault) 54.5 BUN/Creatinine Ratio 42 (6-20) Glucose Level 124 mg/dL (70-99) Calcium Level 9.3 mg/dL (8.5-10.1) Magnesium Level 1.6 mg/dL (1.8-2.4) Total Bilirubin 0.4 mg/dL (0.2-1.0) Aspartate Amino Transf (AST/SGOT) 59 U/L (15-37) Alanine Aminotransferase (ALT/SGPT) 90 U/L (14-59) Alkaline Phosphatase 132 U/L (46-116) Troponin I Quantitative 0.044 ng/mL (0.000-0.055) HU-Qur-J-Type Natriuretic Peptide 241 pg/mL (0-124) Total Protein 8.5 g/dL (6.4-8.2) Albumin 2.8 g/dL (3.4-5.0) Albumin/Globulin Ratio 0.5 (1.0-1.7) Urine Collection Type Unknown Urine Color Yellow Urine Clarity Clear Urine pH 6.5 Urine Specific [place] 1.025 Urine Protein Negative mg/dL (NEG-TRACE) Urine Glucose (UA) 500 mg/dL (NEG) Urine Ketones (Stick) Negative mg/dL (NEG) Urine Blood Negative (NEG) Urine Nitrite Negative (NEG) Urine Bilirubin Negative (NEG) Urine Urobilinogen Dipstick 0.2 mg/dL (0.2 mg/dL) Urine Leukocyte Esterase Moderate (NEG) Urine RBC Occ /HPF (0-2) Urine WBC 11-20 /HPF (0-4) Urine Squamous Epithelial Cells Many /LPF Urine Bacteria Many /HPF (0-FEW) Urine Mucus Slight /LPF Urine Yeast Present /HPF Test 07/18/19 14:01 07/18/19 16:54 07/18/19 20:22 07/19/19 08:02 Glucose (Fingerstick) 228 mg/dL (70-99) 224 mg/dL (70-99) 175 mg/dL (70-99) 113 mg/dL (70-99) Test 07/19/19 11:51 Glucose (Fingerstick) 152 mg/dL (70-99) Laboratory Tests Test 07/18/19 20:22 07/19/19 08:02 07/19/19 11:51 Glucose (Fingerstick) 175 mg/dL (70-99) 113 mg/dL (70-99) 152 mg/dL (70-99) Brief Hospital Course Ms Jones is a 73yo F w/ PMHx DM2, statin-induced myopathy, HLD, HTN, heart valve surgery who developed acute confusion, right arm weakness, slurred speech and facial droop. Once EMS arrived she was noted with glucose of 23 despite eating and taking chronic prednisone lately. Oral dextrose increased her blood sugar went up to 38. Her blood glucose dropped to 25 by the time she was in ED, was started on dextrose infusion, after whic she became more awake , alert, started talking normally and was able to move her right side. She denies any abdominal pain, no chest pain, no trouble breathing. Patient said she woke up last Tuesday with left eye swelling and with blood in her conjunctiva. Patient is on 500 mg metformin QID AND 10 MG GLIMERIDE IN AM on 07/18/19. Admitted for likely sulfonylurea toxicity on D5 infusion. Maintained glucose >100mg/dL overnight. Eye still swollen. Mag level 1.6, corrected. She is a bit anxious to leave but fearful of further hypoglycemia given her TIA symptoms initially. Given a blood glucose of 254 after 2 hours fasting almost 36 hours after manriquez lfonylurea overdose she is advised she may be discharge, but check blood glucose prior to bed tonight. Symptomatic hypoglycemia Acute Encephalopathy TIA DM2 Statin-induced myopathy HLD HTN Heart valve surgery Right ocular conjunctivitis Hypomagnesemia Greater than 30 minutes spent on d/c day Discharge Information Condition at Discharge: Improved Follow Up: Weeks (1) Disposition/Orders: D/C to Home Scheduled Allopurinol (Allopurinol) 100 Mg Tablet, 100 MG PO BID for gout, (Reported) Entered as Reported by: OSEAS WADDELL on 07/18/192057 Last Action: Continued on 07/19/19928 by SARA ULRICH MD Aspirin (Aspirin) 81 Mg Tab.chew, 81 MG PO DAILY for heart, (Reported) Entered as Reported by: OSEAS WADDELL on 07/18/192057 Last Action: Continued on 07/19/19928 by SARA ULRICH MD Diazepam (Diazepam) 5 Mg Tablet, 5 MG PO DAILY for anxiety, (Reported) Entered as Reported by: OSEAS WADDELL on 07/18/192057 Last Action: Continued on 07/19/19928 by SARA ULRICH MD Estradiol (Estradiol) 0.5 Mg Tablet, 0.5 MG PO DAILY for estrogen derivitive, (Reported) Entered as Reported by: OSEAS WADDELL on 07/18/192057 Last Action: New Order on 07/18/192057 by OSEAS WADDELL Folic Acid (Folic Acid) 20 Mg Capsule, 1 CAP PO DAILY for supplementation for 30 Days, #30 Ref 0 (Reported) Entered as Reported by: OSEAS WADDELL on 07/18/192057 Last Action: Converted on 07/19/19928 by SARA ULRICH MD Furosemide (Furosemide) 40 Mg Tablet, 40 MG PO DAILY for fluid retention, (Reported) Entered as Reported by: OSEAS WADDELL on 07/18/192057 Last Action: HELD on 07/19/19928 by SARA ULRICH MD Losartan Potassium (Losartan Potassium) 50 Mg Tablet, 50 MG PO DAILY for HYPERTENSION, (Reported) Entered as Reported by: OSEAS WADDELL on 07/18/192057 Last Action: Continued on 07/19/19928 by SARA ULRICH MD Magnesium Oxide (Magnesium Oxide) 400 Mg Tablet, 400 MG PO DAILY for mag replacement, (Reported) Entered as Reported by: OSEAS WADDELL on 07/18/192057 Last Action: Converted on 07/19/19928 by SARA ULRICH MD Metformin Hcl (Metformin Hcl Er) 500 Mg Tab.er.24h, 500 MG PO BIDWMEALS for diabetes, (Reported) Entered as Reported by: OSEAS WADDELL on 07/18/192057 Last Action: HELD on 07/19/19928 by SARA ULRICH MD Metoprolol Tartrate (Metoprolol Tartrate) 100 Mg Tablet, 100 MG PO DAILY for FOR HYPERTENSION, #60 Ref 0 (Reported) Entered as Reported by: OSEAS WADDELL on 07/18/192057 Last Action: Converted on 07/19/19928 by SARA ULRICH MD Pantoprazole Sodium (Protonix) 20 Mg Tablet.dr, 1 TAB PO DAILY for GERD, #30 (Reported) Entered as Reported by: OSEAS WADDELL on 07/18/192057 Last Action: Converted on 07/19/19928 by SARA ULRICH MD Prednisone (Prednisone) 20 Mg Tablet, 10 MG PO DAILYWBKFT for inflammation, (Reported) Entered as Reported by: OSEAS WADDELL on 07/18/192057 Last Action: Continued on 07/19/19928 by SARA ULRICH MD Spironolactone (Spironolactone) 25 Mg Tablet, 25 MG PO DAILY for diuretic, (Reported) Entered as Reported by: OSEAS WADDELL on 07/18/192057 Last Action: Continued on 07/19/19928 by SARA ULRICH MD Scheduled PRN Levothyroxine Sodium (Levothyroxine Sodium) 25 Mcg Tablet, 75 MCG PO DAILYAC PRN for hypothyroidism, #30 Ref 0 (Reported) Entered as Reported by: OSEAS WADDELL on 07/18/192057 Last Action: Continued on 07/19/19928 by SARA ULRICH MD Discontinued Medications Glimepiride (Glimepiride) 1 Mg Tablet, 2 TAB PO DAILYWBKFT for diabetes, #30 Ref 5 (Reported) Entered as Reported by: OSEAS WADDELL on 07/18/192057 Last Action: HELD on 07/19/19928 by MD MOJGAN BOUCHER CHRISTOPHER S MD Jul 19, 2019 17:00
[2019-07-19] MEDS ORDERED: HEPARIN PF 500 UNIT/5 ML DISP.SYRIN. IVP ONE (17:30)
--- NOTE | 2019-07-19 18:18 | NUR ---
Pt left unit by wheelchair via private vehicle at approx 1810. Pt port deaccessed and flushed with heparin. Discharge paperwork discussed, no additional concerns. Pt stable upon discharge.
== END 2019-07-19 18:30 | disposition home or self-care (01) ==
LOC: ER 10:48 → 5 SOUTH 12:45 → OBSVTOIN 07-19 13:02 → INTOOBSV 07-19 13:02
PROVIDERS: ADMIT Internal Medicine; ATTEND Internal Medicine
DX: E11.649 Type 2 diabetes mellitus with hypoglycemia without coma (principal); G93.40 Encephalopathy, unspecified; G45.9 Transient cerebral ischemic attack, unspecified; E78.5 Hyperlipidemia, unspecified; I10 Essential (primary) hypertension; E83.42 Hypomagnesemia; H10.89 Other conjunctivitis; G72.0 Drug-induced myopathy; Z79.84 Long term (current) use of oral hypoglycemic drugs
CPT/HCPCS: 36415; 70450; 71045; 80053; 81001; 82962; 83735; 83880; 84484; 85025; 85610; 85730; 87086; 93005; 96365; 96366; 96375; 99284; G0378; G0379; J3475; J7042; J7512; 96374; 99285-25

== ENCOUNTER 2020-09-03 16:33 | Inpatient (IN) | payer MEDICARE ==
[~2020-09-03] VITALS: Ht 170.2 cm; Wt 76.2 kg
[~2020-09-03 16:33] MED LIST: ALLO100T PO; ASPI-630 PO; DIAZ5TAB4 PO; ESTR0.5T PO; FOLIC ACID20 MG PO; FURO40TA4 PO; GLIM1TAB7 PO; LEVO25TA4 PO; LOSA-73 PO; MAGN400T44 PO; METF-658 PO; METO100T7 PO; PANT20TA2 PO; PRED20TA PO; SPIR25TA5 PO
[2020-09-03] MEDS ORDERED: IV NORMAL SALINE 1000ML BAG 1,000 ML IV ONE (17:00)
[2020-09-03] MEDS ORDERED: DEXAMETHASONE SOD PHOS 20 MG/5 ML VIAL. IV ONE (17:00)
[2020-09-03 17:14] LABS: BASO % 0 % (0-3); EOS % 0 % (0-3); HEMATOCRIT 36.5 % (36.0-47.0); LYMPH # 0.3 x10^3/uL (1.0-4.8); LYMPH % 7 % (24-48); MEAN CORPUSCULAR HEMOGLOBIN 32 pg (25-35); MEAN CORPUSCULAR HGB CONC 33 g/dL (31-37); MEAN CORPUSCULAR VOLUME 99 fL (79-100); MONO # 0.4 x10^3/uL (0.0-1.1); MONO % 12 % (0-9); NEUT # 2.8 x10^3/uL (1.8-7.7); NEUT % 80 % (31-73); PLATELET COUNT 161 x10^3/uL (140-400); RED CELL DISTRIBUTION WIDTH 21.8 % (11.5-14.5); WHITE BLOOD COUNT 3.5 x10^3/uL (4.0-11.0)
--- NOTE | 2020-09-03 17:28 | RAD ---
EXAM: CHEST 1 VIEW History: Cough COMPARISON: 07/18/2019 TECHNIQUE: Single portable radiograph of the chest FINDINGS: Low lung volumes and technique accentuates heart size and pulmonary vascularity . Right-si ded Port-A-Cath is again identified. Left-sided cardiac pacer is identified with. Moderate prominent bilateral interstitial lung markings mild bibasilar lung airspace opacities likely atelectasis or inf iltrates left greater than left. IMPRESSION: . 1. Mild congestive changes. 2. Mild bibasilar lung airspace opacities likely atelectasis or infiltrates left greater than right. Electronically signed by: Fredrick Pardo MD (09/03/2020 5:25 PM) [id number]
[2020-09-03 17:33] LABS: GFR 54.3; POTASSIUM 4.2 mmol/L (3.5-5.1)
[2020-09-03 17:38] LABS: ALBUMIN 2.7 g/dL (3.4-5.0); ALBUMIN/GLOBULIN RATIO 0.6 (1.0-1.7); MAGNESIUM 1.6 mg/dL (1.8-2.4); TOTAL BILIRUBIN 0.6 mg/dL (0.2-1.0); TOTAL PROTEIN 7.6 g/dL (6.4-8.2)
[2020-09-03 18:59] LABS: ANISOCYTOSIS MOD; PLT ESTIMATE ADEQUATE (ADEQUATE)
[2020-09-03 19:00] LABS: POIKILOCYTOSIS SLIGHT; SPHEROCYTES OCC; TEAR DROP CELLS FEW
[2020-09-03 19:01] LABS: OVALOCYTES OCC; SCHISTOCYTES OCC
--- NOTE | 2020-09-03 20:17 | PHYS DOC ---
Past Medical History Past Medical History: Diabetes-Type II, High Cholesterol, Hypertension, Hypothyroid, Other Additional Past Medical Histor: statin myopathy, meningitis Past Surgical History: Cholecystectomy, Hysterectomy, Pacemaker, Tonsillectomy, Other Additional Past Surgical Histo: tricuspid valve replacement, Smoking Status: Never Smoker Alcohol Use: None Drug Use: None General Adult EDM: Chief Complaint: FATIGUE HPI: HPI: Patient is a 74 year old history of high cholesterol, hypertension, diabetes type 2, who presents to the ED today complaining of fatigue, generalized weakness, cough, shortness of breath, symptoms for 1 week. Patient states she was diagnosed with COVID-19 on Tuesday which is 4 days ago, she states she resides at home with her who is unable to take care of her because he also has COVID-19. Patient denies any fever. Review of Systems: Review of Systems: Constitutional: Reports fatigue and generalized weakness. Denies fever or chills. [] Eyes: Denies change in visual acuity. [] HENT: Denies nasal congestion or sore throat. [] Respiratory: Reports cough and shortness of breath Cardiovascular: Denies chest pain or edema. [] GI: Denies abdominal pain, nausea, vomiting, bloody stools or diarrhea. [] : Denies dysuria. [] Musculoskeletal: Denies back pain or joint pain. [] Integument: Denies rash. [] Neurologic: Denies headache, focal weakness or sensory changes. [] Psychiatric: Denies depression or anxiety. [] Heart Score: Risk Factors: Risk Factors: DM, Current or recent (<one month) smoker, HTN, HLP, family history of CAD, obesity. Risk Scores: Score 0 - 3: 2.5% MACE over next 6 weeks - Discharge Home Score 4 - 6: 20.3% MACE over next 6 weeks - Admit for Clinical Observation Score 7 - 10: 72.7% MACE over next 6 weeks - Early Invasive Strategies Current Medications: Current Medications Medications (Trade) Dose Ordered Sig/Aidan Start Time Stop Time Status Last Admin Dose Admin Dexamethasone Sodium Phosphate (Decadron) 10 mg 1X ONCE 09/03/20 17:00 09/03/20 17:01 DC 09/03/20 17:29 10 MG Levofloxacin/ Dextrose 100 ml @ 100 mls/hr 1X ONCE 09/03/20 19:00 09/03/20 19:59 DC Sodium Chloride 1,000 ml @ 1,000 mls/hr 1X ONCE 09/03/20 17:00 09/03/20 17:59 DC 09/03/20 17:27 1,000 MLS/HR Allergies: Allergies: Allergies Coded Allergies Type Severity Reaction Last Updated Verified Penicillins Allergy Intermediate 07/18/19 Yes Tetracyclines Allergy Intermediate rash 07/18/19 Yes adhesive tape Allergy Intermediate rash 07/18/19 Yes lisinopril Allergy Intermediate cough 07/18/19 Yes sulfamethoxazole Allergy Intermediate 07/18/19 Yes trimethoprim Allergy Intermediate 07/18/19 Yes cephalexin Allergy Unknown 09/03/20 Yes Physical Exam: PE: Constitutional: Well developed, well nourished, no acute distress, non-toxic appearance. [] HENT: Normocephalic, atraumatic, bilateral external ears normal, oropharynx moist, no oral exudates, nose normal. [] Eyes: PERRLA, EOMI, conjunctiva normal, no discharge. [] Neck: Normal range of motion, no tenderness, supple, no stridor. [] Cardiovascular:Heart rate regular rhythm, no murmur [] Lungs & Thorax: Bilateral breath sounds clear to auscultation [] Abdomen: Bowel sounds normal, soft, no tenderness, no masses, no pulsatile masses. [] Skin: Warm, dry, no erythema, no rash. [] Back: No tenderness, no CVA tenderness. [] Extremities: No tenderness, no cyanosis, no clubbing, ROM intact, no edema. [] Neurologic: Alert and oriented X 3, normal motor function, normal sensory function, no focal deficits noted. [] Psychologic: Affect normal, judgement normal, mood normal. [] Current Patient Data: Labs: Laboratory Tests Test 09/03/20 16:50 White Blood Count 3.5 x10^3/uL (4.0-11.0) L Red Blood Count 3.70 x10^6/uL (3.50-5.40) Hemoglobin 12.0 g/dL (12.0-15.5) Hematocrit 36.5 % (36.0-47.0) Mean Corpuscular Volume 99 fL (79-100) Mean Corpuscular Hemoglobin 32 pg (25-35) Mean Corpuscular Hemoglobin Concent 33 g/dL (31-37) Red Cell Distribution Width 21.8 % (11.5-14.5) H Platelet Count 161 x10^3/uL (140-400) Neutrophils (%) (Auto) 80 % (31-73) H Lymphocytes (%) (Auto) 7 % (24-48) L Monocytes (%) (Auto) 12 % (0-9) H Eosinophils (%) (Auto) 0 % (0-3) Basophils (%) (Auto) 0 % (0-3) Neutrophils # (Auto) 2.8 x10^3/uL (1.8-7.7) Lymphocytes # (Auto) 0.3 x10^3/uL (1.0-4.8) L Monocytes # (Auto) 0.4 x10^3/uL (0.0-1.1) Eosinophils # (Auto) 0.0 x10^3/uL (0.0-0.7) Basophils # (Auto) 0.0 x10^3/uL (0.0-0.2) Platelet Estimate Adequate (ADEQUATE) Poikilocytosis Slight Anisocytosis Mod Spherocytes Occ Tear Drop Cells Few Ovalocytes Occ Schistocytes Occ Sodium Level 133 mmol/L (136-145) L Potassium Level 4.2 mmol/L (3.5-5.1) Chloride Level 100 mmol/L (98-107) Carbon Dioxide Level 23 mmol/L (21-32) Anion Gap 10 (6-14) Blood Urea Nitrogen 21 mg/dL (7-20) H Creatinine 1.0 mg/dL (0.6-1.0) Estimated GFR (Cockcroft-Gault) 54.3 BUN/Creatinine Ratio 21 (6-20) H Glucose Level 124 mg/dL (70-99) H Lactic Acid Level 2.1 mmol/L (0.4-2.0) H Calcium Level 9.0 mg/dL (8.5-10.1) Magnesium Level 1.6 mg/dL (1.8-2.4) L Total Bilirubin 0.6 mg/dL (0.2-1.0) Aspartate Amino Transferase (AST) 50 U/L (15-37) H Alanine Aminotransferase (ALT) 42 U/L (14-59) Alkaline Phosphatase 131 U/L (46-116) H Troponin I Quantitative 0.029 ng/mL (0.000-0.055) JA-Muj-[id number]-Type Natriuretic Peptide 644 pg/mL (0-124) H Total Protein 7.6 g/dL (6.4-8.2) Albumin 2.7 g/dL (3.4-5.0) L Albumin/Globulin Ratio 0.6 (1.0-1.7) L Thyroid Stimulating Hormone (TSH) 0.368 uIU/mL (0.358-3.74) Laboratory Tests 09/03/20 16:50 Laboratory Tests 09/03/20 16:50 Vital Signs: Vital Signs Date Time Temp Pulse Resp B/P (MAP) Pulse Ox O2 Delivery O2 Flow Rate FiO2 09/03/20 17:57 78 22 100/56 (71) 92 Room Air 09/03/20 17:07 99.1 99.1 EKG: EK interpreted by Dr. Walker sinus rhythm HR 82 no STEMI[] Radiology/Procedures: Radiology/Procedures: []PROCEDURE: PORTABLE CHEST 1V EXAM: CHEST 1 VIEW History: Cough COMPARISON: 07/18/2019 TECHNIQUE: Single portable radiograph of the chest FINDINGS: Low lung volumes and technique accentuates heart size and pulmonary vascularity . Right-sided Port-A-Cath is again identified. Left-sided cardiac pacer is identified with. Moderate prominent bilateral interstitial lung markings mild bibasilar lung airspace opacities likely atelectasis or infiltrates left greater than left. IMPRESSION: . 1. Mild congestive changes. 2. Mild bibasilar lung airspace opacities likely atelectasis or infiltrates left greater than right. Electronically signed by: Fredrick Pardo MD (09/03/2020 5:25 PM) [id number] DICTATED and SIGNED BY: FREDRICK PARDO MD DATE: 09/03/20 [id number] Course & Med Decision Making: Course & Med Decision Making Pertinent Labs and Imaging studies reviewed. (See chart for details) This is a 74-year-old female patient who presents to the ED today to be evaluated for generalized weakness, fatigue, cough and shortness of breath for 1 week. Patient was diagnosed with COVID-19 4 days ago. Patient resides at home with her who is also positive for the disease and unable to care for patient. Arrives in the ED with O2 sats at 92% on room air. Temperature 99.1. Blood pressure 102/59, heart rate in the 80s respiration 20-22 on RA CBC with a WBC of 3.9, CMP with nothing really acute. Lactic 2.1. Chest x-ray interpreted by radiologist noted for mild bibasilar lung airspace opacities likely atelectasis or infiltrates left greater than right. Patient was given Decadron IV, IV fluids and Levaquin in the ED. She is allergic to penicillin, tetracycline, cephalosporins, Bactrim among other allergies. Spoke with Dr. Richards who accepted patient for admission. Chanelle Disclaimer: Chanelle Disclaimer: This electronic medical record was generated, in whole or in part, using a voice recognition dictation system. Departure Departure Impression: Primary Impression: Lab test positive for detection of COVID-19 virus Additional Impressions: Pneumonia of both lower lobes Qualified Codes: J18.9 - Pneumonia, unspecified organism Shortness of breath Cough Weakness Disposition: 09 ADMITTED INPT THIS HOSP Condition: STABLE Referrals: UNKNOWN PCP NAME (PCP) SUKUMAR ECHEVARRIA APRN Sep 03, 2020 20:17
[2020-09-03] MEDS ORDERED: MORPHINE SULFATE 2 MG/ML VIAL. IV PRN (21:00)
[2020-09-03] MEDS ORDERED: ACETAMINOPHEN 325 MG TABLET. PO PRN (21:00)
[2020-09-03] MEDS ORDERED: ONDANSETRON PF 4 MG/2 ML VIAL. IV PRN (21:00)
[2020-09-03 23:00] VITALS: BP 93/64
[2020-09-04 03:30] VITALS: BP_SYST 92; BP_SYST 99; BP_DIAS 47; BP_DIAS 57
[2020-09-04] MEDS ORDERED: MORPHINE SULFATE 4 MG/ML VIAL. IV PRN (04:00)
[2020-09-04 07:00] VITALS: BP 115/56
--- NOTE | 2020-09-04 09:19 | PDOC1 ---
History and Physical Date of Service: DOS: DATE: 09/04/20 TIME: 09:12 Chief Complaint: Chief Complain: SOB generalized weakness History of Present Illness: HPI: 74 year old history of high cholesterol, hypertension, diabetes type 2, who presents to the ED today complaining of fatigue, generalized weakness, cough, shortness of breath, symptoms for 1 week. Patient states she was diagnosed with COVID-19 on Tuesday which is 4 days ago, she states she resides at home with her who is unable to take care of her because he also has COVID-19. Patient denies any fever. Past Medical/Surgical History: PMH/PSH: Past Medical History: Diabetes-Type II, High Cholesterol, Hypertension, Hypothyroid, statin myopathy, meningitis Past Surgical History: Cholecystectomy, Hysterectomy, Pacemaker, Tonsillectomy, tricuspid valve replacement, Allergies: Allergies: Coded Allergies: Penicillins (Verified Allergy, Intermediate, 07/18/19) rash Tetracyclines (Verified Allergy, Intermediate, rash, 07/18/19) adhesive tape (Verified Allergy, Intermediate, rash, 07/18/19) cephalexin (Verified Allergy, Intermediate, 09/04/20) lisinopril (Verified Allergy, Intermediate, cough, 07/18/19) sulfamethoxazole (Verified Allergy, Intermediate, 07/18/19) rash trimethoprim (Verified Allergy, Intermediate, 07/18/19) rash Family History: Family History: Reviewed with no relevant findings Social History: Social History: Smoking Status: Never Smoker Alcohol Use: None Drug Use: None Current Medications: Current Medications Current Medications Dexamethasone Sodium Phosphate (Decadron) 10 mg 1X ONCE IV Last administered on 09/03/20at 17:29; Start 09/03/20 at 17:00; Stop 09/03/20 at 17:01; Status DC Sodium Chloride 1,000 ml @ 1,000 mls/hr 1X ONCE IV Last administered on 09/03/20at 17:27; Start 09/03/20 at 17:00; Stop 09/03/20 at 17:59; Status DC Levofloxacin/ Dextrose 100 ml @ 100 mls/hr 1X ONCE IV Last administered on 09/03/20at 19:00; Start 09/03/20 at 19:00; Stop 09/03/20 at 19:59; Status DC Ondansetron HCl (Zofran) 4 mg PRN Q8HRS PRN IV NAUSEA/VOMITING 1ST CHOICE; Start 09/03/20 at 21:00; Stop 09/04/20 at 20:59 Morphine Sulfate (Morphine Sulfate) 2 mg PRN Q2HR PRN IV SEVERE PAIN 7-10; Start 09/03/20 at 21:00; Stop 09/04/20 at 20:59 Acetaminophen (Tylenol) 650 mg PRN Q4HRS PRN PO FEVER > 100.3'F; Start 09/03/20 at 21:00; Stop 09/04/20 at 20:59 Active Scripts Active Reported Diazepam 5 Mg Tablet 5 Mg PO DAILY Metoprolol Tartrate 100 Mg Tablet 100 Mg PO DAILY Losartan Potassium 50 Mg Tablet 50 Mg PO DAILY Aspirin 81 Mg Tab.chew 81 Mg PO DAILY Prednisone 20 Mg Tablet 10 Mg PO [id number] Protonix (Pantoprazole Sodium) 20 Mg Tablet.dr 1 Tab PO DAILY Folic Acid 20 Mg Capsule 1 Cap PO DAILY 30 Days Furosemide 40 Mg Tablet 40 Mg PO DAILY Magnesium Oxide 400 Mg Tablet 400 Mg PO DAILY Metformin Hcl Er (Metformin Hcl) 500 Mg Tab.er.24h 500 Mg PO BIDWMEALS Allopurinol 100 Mg Tablet 100 Mg PO BID Estradiol 0.5 Mg Tablet 0.5 Mg PO DAILY Spironolactone 25 Mg Tablet 25 Mg PO DAILY Levothyroxine Sodium 25 Mcg Tablet 75 Mcg PO DAILYAC PRN ROS: Review of Systems Review of System REVIEW OF SYSTEMS: GENERAL: Denies weakness SKIN: No bruising, hair changes or rashes. EYES: No blurred, double or loss of vision. NOSE AND THROAT: No history of nosebleeds, hoarseness or sore throat. HEART: No history of palpitations, chest pain or shortness of breath on exertion. LUNGS: Denies cough, hemoptysis, wheezing or shortness of breath. GASTROINTESTINAL: Denies changes in appetite, nausea, vomiting, diarrhea or constipation. GENITOURINARY: No history of frequency, urgency, hesitancy or nocturia. NEUROLOGIC: Denies history of numbness, tingling, or tremor. PSYCHIATRIC: No history of panic, anxiety or depression. ENDOCRINE: No history of heat or cold intolerance, polyuria or polydipsia. EXTREMITIES: Denies joint pain, pain on walking or stiffness. Physical Exam: Vital Signs: Vital Signs Date Time Temp Pulse Resp B/P (MAP) Pulse Ox O2 Delivery O2 Flow Rate FiO2 09/04/20 07:00 98.0 80 18 115/56 (75) 93 Nasal Cannula 2.0 98.0 Physcial Exam: GEN: No apparent distress. Alert and oriented HEENT: Normal cephalic, atraumatic, external auditory canals are patent EYES: Extraocular muscles are intact, pupil are equally round and reactive to light and accommodation MUSCULOSKELETAL: Well developed , well nourished, good range of motion ENDOCRINE: No thyromegaly was palpated LYMPHATICS: No cervical chain or axillary nodes were noted HEMATOPOIETIC: No bruising NECK: Supple, no JVD, no thyromegaly was noted LUNGS: Clear to auscultation in all lung aguilar without rhonchi or wheezing HEART: RRR, S!, S2 present. Peripheral pulses intact, no obvious murmurs noted ABDOMEN: Soft, nontender. Positive bowel sounds, no organomegaly, normal bowel sounds EXTREMITIES: Without clubbing, cyanosis, or edema. Pedal pulses intact. Negative Homans sign NEUROLOGIC: Normal speech and tone. A&O x 3, moves all extremities, no obvious focal deficits PSYCHIATRIC: Normal affect, normal mood. Stable SKIN: No ulcerations or rashes, good skin turgor, no jaundice VASCULAR: Good capillary refill, neurovascular bundle appears to be intact Labs: Labs: Laboratory Tests Test 09/03/20 16:50 09/03/20 23:53 09/04/20 07:41 White Blood Count 3.5 x10^3/uL (4.0-11.0) Red Blood Count 3.70 x10^6/uL (3.50-5.40) Hemoglobin 12.0 g/dL (12.0-15.5) Hematocrit 36.5 % (36.0-47.0) Mean Corpuscular Volume 99 fL (79-100) Mean Corpuscular Hemoglobin 32 pg (25-35) Mean Corpuscular Hemoglobin Concent 33 g/dL (31-37) Red Cell Distribution Width 21.8 % (11.5-14.5) Platelet Count 161 x10^3/uL (140-400) Neutrophils (%) (Auto) 80 % (31-73) Lymphocytes (%) (Auto) 7 % (24-48) Monocytes (%) (Auto) 12 % (0-9) Eosinophils (%) (Auto) 0 % (0-3) Basophils (%) (Auto) 0 % (0-3) Neutrophils # (Auto) 2.8 x10^3/uL (1.8-7.7) Lymphocytes # (Auto) 0.3 x10^3/uL (1.0-4.8) Monocytes # (Auto) 0.4 x10^3/uL (0.0-1.1) Eosinophils # (Auto) 0.0 x10^3/uL (0.0-0.7) Basophils # (Auto) 0.0 x10^3/uL (0.0-0.2) Platelet Estimate Adequate (ADEQUATE) Poikilocytosis Slight Anisocytosis Mod Spherocytes Occ Tear Drop Cells Few Ovalocytes Occ Schistocytes Occ Sodium Level 133 mmol/L (136-145) Potassium Level 4.2 mmol/L (3.5-5.1) Chloride Level 100 mmol/L (98-107) Carbon Dioxide Level 23 mmol/L (21-32) Anion Gap 10 (6-14) Blood Urea Nitrogen 21 mg/dL (7-20) Creatinine 1.0 mg/dL (0.6-1.0) Estimated GFR (Cockcroft-Gault) 54.3 BUN/Creatinine Ratio 21 (6-20) Glucose Level 124 mg/dL (70-99) Lactic Acid Level 2.1 mmol/L (0.4-2.0) 1.4 mmol/L (0.4-2.0) Calcium Level 9.0 mg/dL (8.5-10.1) Magnesium Level 1.6 mg/dL (1.8-2.4) Total Bilirubin 0.6 mg/dL (0.2-1.0) Aspartate Amino Transf (AST/SGOT) 50 U/L (15-37) Alanine Aminotransferase (ALT/SGPT) 42 U/L (14-59) Alkaline Phosphatase 131 U/L (46-116) Troponin I Quantitative 0.029 ng/mL (0.000-0.055) 0.024 ng/mL (0.000-0.055) QU-Oqm-[id number]-Type Natriuretic Peptide 644 pg/mL (0-124) Total Protein 7.6 g/dL (6.4-8.2) Albumin 2.7 g/dL (3.4-5.0) Albumin/Globulin Ratio 0.6 (1.0-1.7) Thyroid Stimulating Hormone (TSH) 0.368 uIU/mL (0.358-3.74) Glucose (Fingerstick) 155 mg/dL (70-99) Laboratory Tests Test 09/03/20 16:50 09/03/20 23:53 09/04/20 07:41 White Blood Count 3.5 x10^3/uL (4.0-11.0) Red Blood Count 3.70 x10^6/uL (3.50-5.40) Hemoglobin 12.0 g/dL (12.0-15.5) Hematocrit 36.5 % (36.0-47.0) Mean Corpuscular Volume 99 fL (79-100) Mean Corpuscular Hemoglobin 32 pg (25-35) Mean Corpuscular Hemoglobin Concent 33 g/dL (31-37) Red Cell Distribution Width 21.8 % (11.5-14.5) Platelet Count 161 x10^3/uL (140-400) Neutrophils (%) (Auto) 80 % (31-73) Lymphocytes (%) (Auto) 7 % (24-48) Monocytes (%) (Auto) 12 % (0-9) Eosinophils (%) (Auto) 0 % (0-3) Basophils (%) (Auto) 0 % (0-3) Neutrophils # (Auto) 2.8 x10^3/uL (1.8-7.7) Lymphocytes # (Auto) 0.3 x10^3/uL (1.0-4.8) Monocytes # (Auto) 0.4 x10^3/uL (0.0-1.1) Eosinophils # (Auto) 0.0 x10^3/uL (0.0-0.7) Basophils # (Auto) 0.0 x10^3/uL (0.0-0.2) Platelet Estimate Adequate (ADEQUATE) Poikilocytosis Slight Anisocytosis Mod Spherocytes Occ Tear Drop Cells Few Ovalocytes Occ Schistocytes Occ Sodium Level 133 mmol/L (136-145) Potassium Level 4.2 mmol/L (3.5-5.1) Chloride Level 100 mmol/L (98-107) Carbon Dioxide Level 23 mmol/L (21-32) Anion Gap 10 (6-14) Blood Urea Nitrogen 21 mg/dL (7-20) Creatinine 1.0 mg/dL (0.6-1.0) Estimated GFR (Cockcroft-Gault) 54.3 BUN/Creatinine Ratio 21 (6-20) Glucose Level 124 mg/dL (70-99) Lactic Acid Level 2.1 mmol/L (0.4-2.0) 1.4 mmol/L (0.4-2.0) Calcium Level 9.0 mg/dL (8.5-10.1) Magnesium Level 1.6 mg/dL (1.8-2.4) Total Bilirubin 0.6 mg/dL (0.2-1.0) Aspartate Amino Transf (AST/SGOT) 50 U/L (15-37) Alanine Aminotransferase (ALT/SGPT) 42 U/L (14-59) Alkaline Phosphatase 131 U/L (46-116) Troponin I Quantitative 0.029 ng/mL (0.000-0.055) 0.024 ng/mL (0.000-0.055) GS-Jib-K-Type Natriuretic Peptide 644 pg/mL (0-124) Total Protein 7.6 g/dL (6.4-8.2) Albumin 2.7 g/dL (3.4-5.0) Albumin/Globulin Ratio 0.6 (1.0-1.7) Thyroid Stimulating Hormone (TSH) 0.368 uIU/mL (0.358-3.74) Glucose (Fingerstick) 155 mg/dL (70-99) Images: Images IMPRESSION: . 1. Mild congestive changes. 2. Mild bibasilar lung airspace opacities likely atelectasis or infiltrates left greater than right. Justifications for Admission Other Justification ELIZABETH MONTEZ MD Sep 04, 2020 09:19
[2020-09-04 11:00] VITALS: BP 104/56
[2020-09-04 11:07] LABS: BASO % 0 % (0-3); EOS % 0 % (0-3); HEMOGLOBIN 11.2 g/dL (12.0-15.5); LYMPH # 0.3 x10^3/uL (1.0-4.8); LYMPH % 14 % (24-48); MEAN CORPUSCULAR HEMOGLOBIN 33 pg (25-35); MEAN CORPUSCULAR HGB CONC 33 g/dL (31-37); MEAN CORPUSCULAR VOLUME 99 fL (79-100); MONO # 0.2 x10^3/uL (0.0-1.1); MONO % 12 % (0-9); NEUT # 1.4 x10^3/uL (1.8-7.7); NEUT % 74 % (31-73); PLATELET COUNT 141 x10^3/uL (140-400); RED BLOOD COUNT 3.42 x10^6/uL (3.50-5.40); RED CELL DISTRIBUTION WIDTH 22.2 % (11.5-14.5)
[2020-09-04 11:24] LABS: ALBUMIN 2.5 g/dL (3.4-5.0); ALBUMIN/GLOBULIN RATIO 0.5 (1.0-1.7); CALCIUM 8.6 mg/dL (8.5-10.1); CREATININE 0.8 mg/dL (0.6-1.0); GFR 70.3; POTASSIUM 4.3 mmol/L (3.5-5.1); TOTAL BILIRUBIN 0.5 mg/dL (0.2-1.0); TOTAL PROTEIN 7.1 g/dL (6.4-8.2)
[2020-09-04 11:29] LABS: WHITE BLOOD COUNT 1.9 x10^3/uL (4.0-11.0)
[2020-09-04 12:08] LABS: % LYMPHS 11 % (24-48); % MONOS 10 % (0-10); % SEGS 79 % (35-66); PLT ESTIMATE ADEQUATE (ADEQUATE)
[2020-09-04 12:09] LABS: ANISOCYTOSIS SLIGHT; BURR CELLS OCC; OVALOCYTES OCC; POLYCHROMASIA SLIGHT; TARGET CELLS OCC; TEAR DROP CELLS OCC
[2020-09-04 15:00] VITALS: BP 112/65
[2020-09-04] MEDS ORDERED: SENNOSIDES 8.6 MG TABLET PO PRN (15:45)
[2020-09-04] MEDS ORDERED: ONDANSETRON PF 4 MG/2 ML VIAL. IVP PRN (15:45)
[2020-09-04] MEDS ORDERED: DEXTROSE 50% 25 GM / 50ML DISP.SYRIN. IV PRN (15:45)
[2020-09-04] MEDS ORDERED: DOCUSATE SODIUM 100 MG CAPSULE. PO PRN (15:45)
--- NOTE | 2020-09-04 16:09 | NUR ---
SW following for discharge planning. Spoke with RN and reviewed chart. Pt from home with spouse. Pt COVID positive, 2l 02, ADA diet. PT/OT to evaluate. WBC 1.9. Spoke with pt, no home 02. Possible need for 6 min walk prior to discharge. Pt agreeable to considering HH on discharge. SW following.
[2020-09-04 16:34] LABS: C-REACTIVE PROTEIN 62.6 mg/L (0-3.3)
[2020-09-04 19:25] VITALS: BP 106/52
[2020-09-04] MEDS: ENOXAPARIN 40 MG/0.4 ML SYRINGE. SQ SCH (21:49)
[2020-09-04] MEDS: ASCORBIC ACID 500 MG TABLET PO SCH (21:50)
[2020-09-04] MEDS: THIAMINE INJ 100 MG in IV DEXTROSE 5% 50 ML IV SCH (21:50)
[2020-09-04 23:00] VITALS: BP 108/61
[2020-09-05] VITALS (7 sets, daily range): BP systolic 109–144; BP diastolic 61–67
[2020-09-05] MEDS: THIAMINE INJ 100 MG in IV DEXTROSE 5% 50 ML IV SCH (06:06)
[2020-09-05] MEDS: DEXAMETHASONE SOD PHOS 4 MG/ML VIAL IVP SCH (08:16)
[2020-09-05] MEDS: ASCORBIC ACID 500 MG TABLET PO SCH ×3 (08:16→21:02)
[2020-09-05] MEDS ORDERED: IOHEXOL 350 MG/ML 100 ML VIAL. IV ONE (10:15)
[2020-09-05] MEDS ORDERED: CONTRAST GIVEN. MC PRN (10:30)
[2020-09-05 11:24] LABS: CREATININE 0.8 mg/dL (0.6-1.0); GFR 70.3; MAGNESIUM 2.2 mg/dL (1.8-2.4); POTASSIUM 4.6 mmol/L (3.5-5.1)
[2020-09-05 12:32] LABS: BILIRUBIN,URINE NEGATIVE (NEG); CLARITY,URINE CLEAR; COLOR,URINE YELLOW; NITRITE,URINE NEGATIVE (NEG); PH,URINE 5.5 (<5.0-8.0); PROTEIN,URINE NEGATIVE (NEG-TRACE); UROBILINOGEN,URINE 0.2 mg/dL (0.2 mg/dL)
[2020-09-05 12:39] LABS: BARBITURATES NEG (NEG); BENZODIAZEPINES NEG (NEG); CANNABINOIDS NEG (NEG); COCAINE NEG (NEG); METHADONE NEG (NEG); OPIATES POS (NEG); PHENCYCLIDINE NEG (NEG)
[2020-09-05 12:48] LABS: BACTERIA,URINE MODERATE /HPF (0-FEW); HYALINE CASTS, URINE FEW /HPF; RBC,URINE 0 /HPF (0-2); WBC,URINE OCC /HPF (0-4)
[2020-09-05 12:55] LABS: AMPHETAMINE/METHAMPHETAMINE NEG (NEG)
--- NOTE | 2020-09-05 12:56 | RAD ---
CTA CHEST INDICATION: elevated dimer and SOB Comparison: Radiograph 09/03/2020. TECHNIQUE: Following the uneventful administration of intravenous contrast, 90 cc Omnipaque 350, axia l CT sections were obtained through the lungs and upper abdomen. Multiplanar reconstructions and MIP images were obtained. PQRS compliance statement: One or more of the following individualized dose reduction techniques were utilized for this examinat ion: 1. Automated exposure control 2. Adjustment of the mA and/or kV according to patient size 3. Use of iterative reconstruction technique FINDINGS: Pulmonary arteries: No evidence of pulmonary thromboembolic disease Lungs and Airways: Patchy bilateral consolidations. No abnormality of the central airways. Pleura: The pleural spaces are normal. Heart and Mediastinum: The visualized thyroid is normal in size and attenuation. No axillary or supra clavicular lymphadenopathy. No mediastinal, hilar or retrocrural lymphadenopathy.. Calcified mediasti nal and hilar lymph nodes consistent with remote granulomatous disease. The heart and pericardium are within normal limits. Atherosclerosis of the thoracic aorta. Abdomen: Limited images through the upper abdomen show no abnormality of the visualized organs. Bones and Soft Tissues: Degenerative changes of the spine. IMPRESSION: 1. No evidence of pulmonary thromboembolic disease. 2. Patchy bilateral consolidations, likely multifocal infection Electronically signed by: Kadeem Sutton MD (09/05/2020 12:54 PM) [id number]
[2020-09-05 13:00] LABS: BASO % 0 % (0-3); EOS % 0 % (0-3); HEMOGLOBIN 10.8 g/dL (12.0-15.5); LYMPH # 0.3 x10^3/uL (1.0-4.8); LYMPH % 6 % (24-48); MEAN CORPUSCULAR HEMOGLOBIN 33 pg (25-35); MEAN CORPUSCULAR HGB CONC 33 g/dL (31-37); MEAN CORPUSCULAR VOLUME 100 fL (79-100); MONO # 0.3 x10^3/uL (0.0-1.1); MONO % 6 % (0-9); NEUT # 4.1 x10^3/uL (1.8-7.7); NEUT % 89 % (31-73); PLATELET COUNT 128 x10^3/uL (140-400); RED BLOOD COUNT 3.29 x10^6/uL (3.50-5.40); RED CELL DISTRIBUTION WIDTH 21.5 % (11.5-14.5); WHITE BLOOD COUNT 4.7 x10^3/uL (4.0-11.0)
--- NOTE | 2020-09-05 15:05 | PDOC ---
[facility] [facility] PROGRESS NOTE Date of Service DOS: DATE: 09/05/20 TIME: 15:04 Chief Complaint Chief Complaint Generalized weakness due to COVID-19 infection Leukopenia Normocytic anemia Hyponatremia Lactic acidemia Admit to medicine for further management Pulmonology consult Continue IV thiamine and vitamin C IV 4 mg dexamethasone Daily Patient is outside of window for IV Remdesivir Titrate O2 supplementation to maintain O2 saturation greater than 92% Lovenox for DVT prophylaxis Protonix GI prophylaxis ADA diet Full code Discussed with RN and SW Disposition inpatient management as above Surrogate decision maker is the History of Present Illness History of Present Illness 09/05/2020 No acute events overnight. Patient's O2 saturation of 96% with increasing O2 requirements from 2 L nasal cannula to 4 L nasal cannula. Complains of dyspnea upon exertion when transporting to the commode. No chest pain or diarrhea. Patient's chart, labs, images were reviewed and discussed with RN 74 year old history of high cholesterol, hypertension, diabetes type 2, who presents to the ED today complaining of fatigue, generalized weakness, cough, shortness of breath, symptoms for 1 week. Patient states she was diagnosed with COVID-19 on Tuesday which is 4 days ago, she states she resides at home with her who is unable to take care of her because he also has COVID-19. Patient denies any fever. Vitals/I&O Vitals/I&O: Vital Signs Date Time Temp Pulse Resp B/P (MAP) Pulse Ox O2 Delivery O2 Flow Rate FiO2 09/05/20 11:00 96.0 88 18 109/62 (78) Nasal Cannula 4.0 96.0 09/05/20 07:00 96 I & O 09/04/20 09/04/20 09/05/20 15:00 23:00 07:00 Intake Total 480 ml 480 ml 360 ml Balance 480 ml 480 ml 360 ml Physical Exam Lungs: Clear, Wheezing Labs Labs: Laboratory Tests Test 09/04/20 16:24 09/04/20 20:39 09/05/20 07:49 09/05/20 10:33 Glucose (Fingerstick) 214 mg/dL (70-99) 295 mg/dL (70-99) 162 mg/dL (70-99) Sodium Level 130 mmol/L (136-145) Potassium Level 4.6 mmol/L (3.5-5.1) Chloride Level 99 mmol/L (98-107) Carbon Dioxide Level 20 mmol/L (21-32) Anion Gap 11 (6-14) Blood Urea Nitrogen 25 mg/dL (7-20) Creatinine 0.8 mg/dL (0.6-1.0) Estimated GFR (Cockcroft-Gault) 70.3 Glucose Level 177 mg/dL (70-99) Calcium Level 9.0 mg/dL (8.5-10.1) Phosphorus Level 2.0 mg/dL (2.6-4.7) Magnesium Level 2.2 mg/dL (1.8-2.4) Test 09/05/20 11:28 09/05/20 12:25 09/05/20 12:45 Glucose (Fingerstick) 163 mg/dL (70-99) Urine Collection Type Unknown Urine Color Yellow Urine Clarity Clear Urine pH 5.5 (<5.0-8.0) Urine Specific [place] 1.015 (1.000-1.030) Urine Protein Negative mg/dL (NEG-TRACE) Urine Glucose (UA) Negative mg/dL (NEG) Urine Ketones (Stick) Negative mg/dL (NEG) Urine Blood Negative (NEG) Urine Nitrite Negative (NEG) Urine Bilirubin Negative (NEG) Urine Urobilinogen Dipstick 0.2 mg/dL (0.2 mg/dL) Urine Leukocyte Esterase Negative (NEG) Urine RBC 0 /HPF (0-2) Urine WBC Occ /HPF (0-4) Urine Squamous Epithelial Cells Mod /LPF Urine Bacteria Moderate /HPF (0-FEW) Urine Hyaline Casts Few /HPF Urine Opiates Screen Pos (NEG) Urine Methadone Screen Neg (NEG) Urine Barbiturates Neg (NEG) Urine Phencyclidine Screen Neg (NEG) Urine Amphetamine/Methamphetamine Neg (NEG) Urine Benzodiazepines Screen Neg (NEG) Urine Cocaine Screen Neg (NEG) Urine Cannabinoids Screen Neg (NEG) Urine Ethyl Alcohol Neg (NEG) White Blood Count 4.7 x10^3/uL (4.0-11.0) Red Blood Count 3.29 x10^6/uL (3.50-5.40) Hemoglobin 10.8 g/dL (12.0-15.5) Hematocrit 33.0 % (36.0-47.0) Mean Corpuscular Volume 100 fL (79-100) Mean Corpuscular Hemoglobin 33 pg (25-35) Mean Corpuscular Hemoglobin Concent 33 g/dL (31-37) Red Cell Distribution Width 21.5 % (11.5-14.5) Platelet Count 128 x10^3/uL (140-400) Neutrophils (%) (Auto) 89 % (31-73) Lymphocytes (%) (Auto) 6 % (24-48) Monocytes (%) (Auto) 6 % (0-9) Eosinophils (%) (Auto) 0 % (0-3) Basophils (%) (Auto) 0 % (0-3) Neutrophils # (Auto) 4.1 x10^3/uL (1.8-7.7) Lymphocytes # (Auto) 0.3 x10^3/uL (1.0-4.8) Monocytes # (Auto) 0.3 x10^3/uL (0.0-1.1) Eosinophils # (Auto) 0.0 x10^3/uL (0.0-0.7) Basophils # (Auto) 0.0 x10^3/uL (0.0-0.2) Assessment and Plan Assessmemt and Plan Problems Medical Problems: (1) Cough Status: Acute (2) Lab test positive for detection of COVID-19 virus Status: Acute (3) Pneumonia of both lower lobes Status: Acute (4) Shortness of breath Status: Acute (5) Weakness Status: Acute Comment Review of Relevant I have reviewed the following items nilo (where applicable) has been applied. Medications: Current Medications Medications (Trade) Dose Ordered Sig/Aidan Route PRN Reason Start Time Stop Time Status Last Admin Dose Admin Enoxaparin Sodium (Lovenox 40mg Syringe) 40 mg Q24H SQ 09/04/20 21:00 09/04/20 21:49 Levofloxacin (Levaquin) 500 mg DAILY06 PO 09/04/20 17:00 09/05/20 06:06 Ascorbic Acid (Vitamin C) 3,000 mg TID PO 09/04/20 21:00 09/05/20 08:16 Thiamine HCl 100 mg/Dextrose 51 ml @ 102 mls/hr Q8HRS IV 09/04/20 22:00 09/05/20 13:49 DC 09/05/20 06:06 Dexamethasone Sodium Phosphate (Decadron) 6 mg DAILY IVP 09/05/20 09:00 09/05/20 08:16 Justifications for Admission Other Justification COVID infection ELIZABETH MONTEZ MD Sep 05, 2020 15:05
[2020-09-05] MEDS: THIAMINE 100 MG TABLET. PO SCH ×2 (15:10→21:02)
[2020-09-05] MEDS ORDERED: SODIUM PHOSPHATE 30 MMOL in IV NORMAL SALINE 250ML 250 ML IV ONE (16:00)
[2020-09-05] MEDS: ENOXAPARIN 40 MG/0.4 ML SYRINGE. SQ SCH (21:03)
[2020-09-06 03:35] VITALS: BP 129/66
[2020-09-06 07:00] VITALS: BP 116/65
[2020-09-06] MEDS: THIAMINE 100 MG TABLET. PO SCH ×3 (07:10→21:10)
[2020-09-06] MEDS ORDERED: IV NORMAL SALINE 1000ML BAG 1,000 ML IV ONE (08:00)
[2020-09-06] MEDS: ASCORBIC ACID 500 MG TABLET PO SCH ×3 (09:07→21:10)
[2020-09-06] MEDS: DEXAMETHASONE SOD PHOS 4 MG/ML VIAL IVP SCH (09:07)
--- NOTE | 2020-09-06 09:47 | PDOC ---
PULMONARY PROGRESS NOTES DATE: 09/06/20 TIME: 09:45 Vitals Vital Signs Date Time Temp Pulse Resp B/P (MAP) Pulse Ox O2 Delivery O2 Flow Rate FiO2 09/06/20 07:00 97.8 94 116/65 (82) 92 Nasal Cannula 4.0 97.8 09/05/20 23:40 21 Lungs: Clear, Wheezing Labs Laboratory Tests Test 09/04/20 10:14 09/04/20 11:43 09/04/20 16:24 09/04/20 20:39 White Blood Count 1.9 x10^3/uL (4.0-11.0) Red Blood Count 3.42 x10^6/uL (3.50-5.40) Hemoglobin 11.2 g/dL (12.0-15.5) Hematocrit 34.0 % (36.0-47.0) Mean Corpuscular Volume 99 fL (79-100) Mean Corpuscular Hemoglobin 33 pg (25-35) Mean Corpuscular Hemoglobin Concent 33 g/dL (31-37) Red Cell Distribution Width 22.2 % (11.5-14.5) Platelet Count 141 x10^3/uL (140-400) Neutrophils (%) (Auto) 74 % (31-73) Lymphocytes (%) (Auto) 14 % (24-48) Monocytes (%) (Auto) 12 % (0-9) Eosinophils (%) (Auto) 0 % (0-3) Basophils (%) (Auto) 0 % (0-3) Neutrophils # (Auto) 1.4 x10^3/uL (1.8-7.7) Lymphocytes # (Auto) 0.3 x10^3/uL (1.0-4.8) Monocytes # (Auto) 0.2 x10^3/uL (0.0-1.1) Eosinophils # (Auto) 0.0 x10^3/uL (0.0-0.7) Basophils # (Auto) 0.0 x10^3/uL (0.0-0.2) Segmented Neutrophils % 79 % (35-66) Lymphocytes % 11 % (24-48) Monocytes % 10 % (0-10) Platelet Estimate Adequate (ADEQUATE) Polychromasia Slight Anisocytosis Slight Target Cells Occ Tear Drop Cells Occ Ovalocytes Occ [place] Cells Occ D-Dimer ([place]) 1.22 ug/mlFEU (0.00-0.50) Sodium Level 134 mmol/L (136-145) Potassium Level 4.3 mmol/L (3.5-5.1) Chloride Level 101 mmol/L (98-107) Carbon Dioxide Level 22 mmol/L (21-32) Anion Gap 11 (6-14) Blood Urea Nitrogen 26 mg/dL (7-20) Creatinine 0.8 mg/dL (0.6-1.0) Estimated GFR (Cockcroft-Gault) 70.3 BUN/Creatinine Ratio 33 (6-20) Glucose Level 167 mg/dL (70-99) Calcium Level 8.6 mg/dL (8.5-10.1) Ferritin 274 ng/mL (8-252) Total Bilirubin 0.5 mg/dL (0.2-1.0) Aspartate Amino Transf (AST/SGOT) 42 U/L (15-37) Alanine Aminotransferase (ALT/SGPT) 38 U/L (14-59) Alkaline Phosphatase 123 U/L (46-116) Lactate Dehydrogenase 325 U/L (81-234) C-Reactive Protein, Quantitative 62.6 mg/L (0-3.3) Total Protein 7.1 g/dL (6.4-8.2) Albumin 2.5 g/dL (3.4-5.0) Albumin/Globulin Ratio 0.5 (1.0-1.7) Procalcitonin < 0.10 ng/mL (0.00-0.10) Glucose (Fingerstick) 174 mg/dL (70-99) 214 mg/dL (70-99) 295 mg/dL (70-99) Test 09/05/20 07:49 09/05/20 10:33 09/05/20 11:28 09/05/20 12:25 Glucose (Fingerstick) 162 mg/dL (70-99) 163 mg/dL (70-99) Sodium Level 130 mmol/L (136-145) Potassium Level 4.6 mmol/L (3.5-5.1) Chloride Level 99 mmol/L (98-107) Carbon Dioxide Level 20 mmol/L (21-32) Anion Gap 11 (6-14) Blood Urea Nitrogen 25 mg/dL (7-20) Creatinine 0.8 mg/dL (0.6-1.0) Estimated GFR (Cockcroft-Gault) 70.3 Glucose Level 177 mg/dL (70-99) Calcium Level 9.0 mg/dL (8.5-10.1) Phosphorus Level 2.0 mg/dL (2.6-4.7) Magnesium Level 2.2 mg/dL (1.8-2.4) Urine Collection Type Unknown Urine Color Yellow Urine Clarity Clear Urine pH 5.5 (<5.0-8.0) Urine Specific [place] 1.015 (1.000-1.030) Urine Protein Negative mg/dL (NEG-TRACE) Urine Glucose (UA) Negative mg/dL (NEG) Urine Ketones (Stick) Negative mg/dL (NEG) Urine Blood Negative (NEG) Urine Nitrite Negative (NEG) Urine Bilirubin Negative (NEG) Urine Urobilinogen Dipstick 0.2 mg/dL (0.2 mg/dL) Urine Leukocyte Esterase Negative (NEG) Urine RBC 0 /HPF (0-2) Urine WBC Occ /HPF (0-4) Urine Squamous Epithelial Cells Mod /LPF Urine Bacteria Moderate /HPF (0-FEW) Urine Hyaline Casts Few /HPF Urine Opiates Screen Pos (NEG) Urine Methadone Screen Neg (NEG) Urine Barbiturates Neg (NEG) Urine Phencyclidine Screen Neg (NEG) Urine Amphetamine/Methamphetamine Neg (NEG) Urine Benzodiazepines Screen Neg (NEG) Urine Cocaine Screen Neg (NEG) Urine Cannabinoids Screen Neg (NEG) Urine Ethyl Alcohol Neg (NEG) Test 09/05/20 12:45 09/05/20 16:27 09/05/20 21:03 09/06/20 08:27 White Blood Count 4.7 x10^3/uL (4.0-11.0) Red Blood Count 3.29 x10^6/uL (3.50-5.40) Hemoglobin 10.8 g/dL (12.0-15.5) Hematocrit 33.0 % (36.0-47.0) Mean Corpuscular Volume 100 fL (79-100) Mean Corpuscular Hemoglobin 33 pg (25-35) Mean Corpuscular Hemoglobin Concent 33 g/dL (31-37) Red Cell Distribution Width 21.5 % (11.5-14.5) Platelet Count 128 x10^3/uL (140-400) Neutrophils (%) (Auto) 89 % (31-73) Lymphocytes (%) (Auto) 6 % (24-48) Monocytes (%) (Auto) 6 % (0-9) Eosinophils (%) (Auto) 0 % (0-3) Basophils (%) (Auto) 0 % (0-3) Neutrophils # (Auto) 4.1 x10^3/uL (1.8-7.7) Lymphocytes # (Auto) 0.3 x10^3/uL (1.0-4.8) Monocytes # (Auto) 0.3 x10^3/uL (0.0-1.1) Eosinophils # (Auto) 0.0 x10^3/uL (0.0-0.7) Basophils # (Auto) 0.0 x10^3/uL (0.0-0.2) Glucose (Fingerstick) 234 mg/dL (70-99) 189 mg/dL (70-99) 148 mg/dL (70-99) Laboratory Tests Test 09/05/20 10:33 09/05/20 11:28 09/05/20 12:25 09/05/20 12:45 Sodium Level 130 mmol/L (136-145) Potassium Level 4.6 mmol/L (3.5-5.1) Chloride Level 99 mmol/L (98-107) Carbon Dioxide Level 20 mmol/L (21-32) Anion Gap 11 (6-14) Blood Urea Nitrogen 25 mg/dL (7-20) Creatinine 0.8 mg/dL (0.6-1.0) Estimated GFR (Cockcroft-Gault) 70.3 Glucose Level 177 mg/dL (70-99) Calcium Level 9.0 mg/dL (8.5-10.1) Phosphorus Level 2.0 mg/dL (2.6-4.7) Magnesium Level 2.2 mg/dL (1.8-2.4) Glucose (Fingerstick) 163 mg/dL (70-99) Urine Collection Type Unknown Urine Color Yellow Urine Clarity Clear Urine pH 5.5 (<5.0-8.0) Urine Specific [place] 1.015 (1.000-1.030) Urine Protein Negative mg/dL (NEG-TRACE) Urine Glucose (UA) Negative mg/dL (NEG) Urine Ketones (Stick) Negative mg/dL (NEG) Urine Blood Negative (NEG) Urine Nitrite Negative (NEG) Urine Bilirubin Negative (NEG) Urine Urobilinogen Dipstick 0.2 mg/dL (0.2 mg/dL) Urine Leukocyte Esterase Negative (NEG) Urine RBC 0 /HPF (0-2) Urine WBC Occ /HPF (0-4) Urine Squamous Epithelial Cells Mod /LPF Urine Bacteria Moderate /HPF (0-FEW) Urine Hyaline Casts Few /HPF Urine Opiates Screen Pos (NEG) Urine Methadone Screen Neg (NEG) Urine Barbiturates Neg (NEG) Urine Phencyclidine Screen Neg (NEG) Urine Amphetamine/Methamphetamine Neg (NEG) Urine Benzodiazepines Screen Neg (NEG) Urine Cocaine Screen Neg (NEG) Urine Cannabinoids Screen Neg (NEG) Urine Ethyl Alcohol Neg (NEG) White Blood Count 4.7 x10^3/uL (4.0-11.0) Red Blood Count 3.29 x10^6/uL (3.50-5.40) Hemoglobin 10.8 g/dL (12.0-15.5) Hematocrit 33.0 % (36.0-47.0) Mean Corpuscular Volume 100 fL (79-100) Mean Corpuscular Hemoglobin 33 pg (25-35) Mean Corpuscular Hemoglobin Concent 33 g/dL (31-37) Red Cell Distribution Width 21.5 % (11.5-14.5) Platelet Count 128 x10^3/uL (140-400) Neutrophils (%) (Auto) 89 % (31-73) Lymphocytes (%) (Auto) 6 % (24-48) Monocytes (%) (Auto) 6 % (0-9) Eosinophils (%) (Auto) 0 % (0-3) Basophils (%) (Auto) 0 % (0-3) Neutrophils # (Auto) 4.1 x10^3/uL (1.8-7.7) Lymphocytes # (Auto) 0.3 x10^3/uL (1.0-4.8) Monocytes # (Auto) 0.3 x10^3/uL (0.0-1.1) Eosinophils # (Auto) 0.0 x10^3/uL (0.0-0.7) Basophils # (Auto) 0.0 x10^3/uL (0.0-0.2) Test 1/1/21 16:27 09/05/20 21:03 09/06/20 08:27 Glucose (Fingerstick) 234 mg/dL (70-99) 189 mg/dL (70-99) 148 mg/dL (70-99) Medications Active Scripts Medications Dose Route/Sig Max Daily Dose Days Date Category Diazepam 5 Mg Tablet 5 Mg PO DAILY 07/18/19 Reported Metoprolol Tartrate 100 Mg Tablet 100 Mg PO DAILY 07/18/19 Reported Losartan Potassium 50 Mg Tablet 50 Mg PO DAILY 07/18/19 Reported Aspirin 81 Mg Tab.chew 81 Mg PO DAILY 07/18/19 Reported Prednisone 20 Mg Tablet 10 Mg PO [id number] 07/18/19 Reported Protonix (Pantoprazole Sodium) 20 Mg Tablet.dr 1 Tab PO DAILY 07/18/19 Reported Folic Acid 20 Mg Capsule 1 Cap PO DAILY 30 07/18/19 Reported Furosemide 40 Mg Tablet 40 Mg PO DAILY 07/18/19 Reported Magnesium Oxide 400 Mg Tablet 400 Mg PO DAILY 07/18/19 Reported Metformin Hcl Er (Metformin Hcl) 500 Mg Tab.er.24h 500 Mg PO BIDWMEALS 07/18/19 Reported Allopurinol 100 Mg Tablet 100 Mg PO BID 07/18/19 Reported Estradiol 0.5 Mg Tablet 0.5 Mg PO DAILY 07/18/19 Reported Spironolactone 25 Mg Tablet 25 Mg PO DAILY 07/18/19 Reported Levothyroxine Sodium 25 Mcg Tablet 75 Mcg PO DAILYAC PRN 07/18/19 Reported Impression . Full note dictated Acute respiratory failure secondary to COVID-[address] angiogram negative for PE Status post monoclonal antibody infusion, last Tuesday BERT CHINCHILLA MD Sep 06, 2020 09:47
--- NOTE | 2020-09-06 10:02 | CONS ---
DATE OF CONSULTATION: 09/06/2020 ATTENDING PHYSICIAN: Noel Castro MD REASON FOR CONSULTATION: The patient is seen in Pulmonary consultation at the request of Dr. Castro for acute hypoxemic respiratory failure. 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 The patient was exposed to several family members, who tested positive for COVID. She tested herself positive last Tuesday. She underwent what sounds like IV monoclonal therapy on Tuesday. She did not improve, had increasing weakness and shortness of breath; presented to the Emergency Room and was admitted. I was asked to see her in consultation. She underwent a CT chest. I reviewed the CT, which revealed no evidence of pulmonary emboli. There is bilateral alveolar type of infiltrates compatible with COVID-19. She had toxicology screen, which was positive for opiates. INR with D-dimer was elevated. Electrolytes were noted. Sodium was low. BUN was slightly elevated. White count was initially low at 1.9. She did have lymphopenia. She now feels better. She was eating breakfast, sitting up in a chair, in no respiratory distress. No chest pain or pressure. 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 She has had previous history of meningitis. PAST SURGICAL HISTORY: Status post cholecystectomy, hysterectomy, pacemaker implantation and tonsillectomy. ALLERGIES: SHE HAS MULTIPLE ALLERGIES; please see the list. FAMILY HISTORY: Noncontributory to pulmonary disorders. SOCIAL HISTORY: She has never smoked. REVIEW OF SYSTEMS: As indicated above, otherwise other systems were reviewed and negative. CONSTITUTIONAL: No fever or chills. EYES: No change in visual acuity. HENT: No nasal congestion or sore throat. PULMONARY: As indicated above. CARDIOVASCULAR: No chest pain. No pressure. GASTROINTESTINAL: No nausea, vomiting, diarrhea. GENITOURINARY: No dysuria. MUSCULOSKELETAL: No localized muscle aches or joint pain. CURRENT MEDICATION: List was reviewed. She is receiving IV dexamethasone, antibiotics, Lovenox 40 subQ once daily and levofloxacin. PHYSICAL EXAMINATION: GENERAL: The patient did not appear to be in any respiratory distress. VITAL SIGNS: Stable. O2 saturation greater than 92%, currently on 4 liters. HEENT: Eyes: The sclerae were nonicteric. NECK: Jugular venous distention was not elevated. No lymphadenopathy. CHEST: Full expansion. LUNGS: Crackles throughout both lung aguilar. CARDIOVASCULAR: Regular rate and rhythm with S1, S2, no S3. ABDOMEN: Soft, nontender, nondistended. EXTREMITIES: No clubbing, cyanosis or edema. LABORATORY DATA: As indicated above. Chest x-ray as indicated above. CT reviewed. No evidence of pulmonary embolism. IMPRESSION: 1. Acute hypoxemic respiratory failure secondary to COVID-19 viral pneumonia. 2. COVID-[address] angiogram revealing no evidence of pulmonary embolism. 4. 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 The patient receiving IV infusion on a monthly basis. 5. Status post port for above. 6. Status post IV monoclonal antibody last Tuesday for COVID-19. PLAN: 1. Continue current support with oxygen supplementation. 2. Dexamethasone. 3. Empiric antibiotics for possible bacterial pneumonia. 4. DVT prophylaxis. I do appreciate the privilege in sharing in the patient's care. BERT CHINCHILLA MD DR: KASH/odilon JOB#: [id number] / [id number]
[2020-09-06 11:00] VITALS: BP 142/74
--- NOTE | 2020-09-06 12:08 | PDOC ---
[facility] [facility] PROGRESS NOTE Date of Service DOS: DATE: 09/06/20 TIME: 12:08 Chief Complaint Chief Complaint Generalized weakness due to COVID-19 infection Leukopenia Normocytic anemia Hyponatremia Lactic acidemia Admit to medicine for further management Pulmonology consult Continue IV thiamine and vitamin C IV 4 mg dexamethasone Daily Patient is outside of window for IV Remdesivir Titrate O2 supplementation to maintain O2 saturation greater than 92% Lovenox for DVT prophylaxis Protonix GI prophylaxis ADA diet Full code Discussed with RN and SW Disposition inpatient management as above Surrogate decision maker is the History of Present Illness History of Present Illness 09/06/2020 No acute events overnight. Patient saturating 98% on 4 L nasal cannula. No signs of dyspnea. Sodium is low. We will give a bolus of IV fluid normal saline x1. Patient's chart, labs, images were reviewed and discussed with RN 09/05/2020 No acute events overnight. Patient's O2 saturation of 96% with increasing O2 requirements from 2 L nasal cannula to 4 L nasal cannula. Complains of dyspnea upon exertion when transporting to the commode. No chest pain or diarrhea. Patient's chart, labs, images were reviewed and discussed with RN 74 year old history of high cholesterol, hypertension, diabetes type 2, who presents to the ED today complaining of fatigue, generalized weakness, cough, shortness of breath, symptoms for 1 week. Patient states she was diagnosed with COVID-19 on Tuesday which is 4 days ago, she states she resides at home with her who is unable to take care of her because he also has COVID-19. Patient denies any fever. Vitals/I&O Vitals/I&O: Vital Signs Date Time Temp Pulse Resp B/P (MAP) Pulse Ox O2 Delivery O2 Flow Rate FiO2 09/06/20 07:00 97.8 94 116/65 (82) 92 Nasal Cannula 4.0 97.8 09/05/20 23:40 21 I & O 09/05/20 09/05/20 09/06/20 15:00 23:00 07:00 Intake Total 250 ml 100 ml 250 ml Output Total 100 ml Balance 250 ml 100 ml 150 ml Physical Exam Lungs: Clear, Wheezing Labs Labs: Laboratory Tests Test 09/05/20 12:25 09/05/20 12:45 09/05/20 16:27 09/05/20 21:03 Urine Collection Type Unknown Urine Color Yellow Urine Clarity Clear Urine pH 5.5 (<5.0-8.0) Urine Specific [place] 1.015 (1.000-1.030) Urine Protein Negative mg/dL (NEG-TRACE) Urine Glucose (UA) Negative mg/dL (NEG) Urine Ketones (Stick) Negative mg/dL (NEG) Urine Blood Negative (NEG) Urine Nitrite Negative (NEG) Urine Bilirubin Negative (NEG) Urine Urobilinogen Dipstick 0.2 mg/dL (0.2 mg/dL) Urine Leukocyte Esterase Negative (NEG) Urine RBC 0 /HPF (0-2) Urine WBC Occ /HPF (0-4) Urine Squamous Epithelial Cells Mod /LPF Urine Bacteria Moderate /HPF (0-FEW) Urine Hyaline Casts Few /HPF Urine Opiates Screen Pos (NEG) Urine Methadone Screen Neg (NEG) Urine Barbiturates Neg (NEG) Urine Phencyclidine Screen Neg (NEG) Urine Amphetamine/Methamphetamine Neg (NEG) Urine Benzodiazepines Screen Neg (NEG) Urine Cocaine Screen Neg (NEG) Urine Cannabinoids Screen Neg (NEG) Urine Ethyl Alcohol Neg (NEG) White Blood Count 4.7 x10^3/uL (4.0-11.0) Red Blood Count 3.29 x10^6/uL (3.50-5.40) Hemoglobin 10.8 g/dL (12.0-15.5) Hematocrit 33.0 % (36.0-47.0) Mean Corpuscular Volume 100 fL (79-100) Mean Corpuscular Hemoglobin 33 pg (25-35) Mean Corpuscular Hemoglobin Concent 33 g/dL (31-37) Red Cell Distribution Width 21.5 % (11.5-14.5) Platelet Count 128 x10^3/uL (140-400) Neutrophils (%) (Auto) 89 % (31-73) Lymphocytes (%) (Auto) 6 % (24-48) Monocytes (%) (Auto) 6 % (0-9) Eosinophils (%) (Auto) 0 % (0-3) Basophils (%) (Auto) 0 % (0-3) Neutrophils # (Auto) 4.1 x10^3/uL (1.8-7.7) Lymphocytes # (Auto) 0.3 x10^3/uL (1.0-4.8) Monocytes # (Auto) 0.3 x10^3/uL (0.0-1.1) Eosinophils # (Auto) 0.0 x10^3/uL (0.0-0.7) Basophils # (Auto) 0.0 x10^3/uL (0.0-0.2) Glucose (Fingerstick) 234 mg/dL (70-99) 189 mg/dL (70-99) Test 09/06/20 08:27 09/06/20 11:49 Glucose (Fingerstick) 148 mg/dL (70-99) 206 mg/dL (70-99) Assessment and Plan Assessmemt and Plan Problems Medical Problems: (1) Cough Status: Acute (2) Lab test positive for detection of COVID-19 virus Status: Acute (3) Pneumonia of both lower lobes Status: Acute (4) Shortness of breath Status: Acute (5) Weakness Status: Acute Comment Review of Relevant I have reviewed the following items nilo (where applicable) has been applied. Medications: Current Medications Medications (Trade) Dose Ordered Sig/Aidan Route PRN Reason Start Time Stop Time Status Last Admin Dose Admin Thiamine Mononitrate (Vitamin B-1) 100 mg Q8HRS PO 09/05/20 14:00 09/06/20 07:10 Sodium Phosphate 30 mmol/Sodium Chloride 260 ml @ 65 mls/hr 1X ONCE IV 09/05/20 16:00 09/05/20 19:59 DC 09/05/20 16:03 Sodium Chloride 1,000 ml @ 125 mls/hr 1X ONCE IV 09/06/20 08:00 09/06/20 15:59 09/06/20 09:23 Justifications for Admission Other Justification COVID infection ELIZABETH MONTEZ MD Sep 06, 2020 12:08
[2020-09-06 12:09] LABS: BASO % 0 % (0-3); EOS % 0 % (0-3); HEMATOCRIT 32.9 % (36.0-47.0); HEMOGLOBIN 10.8 g/dL (12.0-15.5); LYMPH # 0.2 x10^3/uL (1.0-4.8); LYMPH % 4 % (24-48); MEAN CORPUSCULAR HEMOGLOBIN 33 pg (25-35); MEAN CORPUSCULAR HGB CONC 33 g/dL (31-37); MEAN CORPUSCULAR VOLUME 99 fL (79-100); MONO # 0.5 x10^3/uL (0.0-1.1); MONO % 11 % (0-9); NEUT # 3.5 x10^3/uL (1.8-7.7); NEUT % 84 % (31-73); PLATELET COUNT 140 x10^3/uL (140-400); RED BLOOD COUNT 3.32 x10^6/uL (3.50-5.40); RED CELL DISTRIBUTION WIDTH 21.2 % (11.5-14.5); WHITE BLOOD COUNT 4.2 x10^3/uL (4.0-11.0)
[2020-09-06 12:30] LABS: CALCIUM 8.7 mg/dL (8.5-10.1); CREATININE 0.9 mg/dL (0.6-1.0); GFR 61.4; MAGNESIUM 1.9 mg/dL (1.8-2.4); POTASSIUM 4.1 mmol/L (3.5-5.1)
[2020-09-06 15:00] VITALS: BP 128/91
[2020-09-06 19:00] VITALS: BP 151/70
[2020-09-06] MEDS: ENOXAPARIN 40 MG/0.4 ML SYRINGE. SQ SCH (21:11)
[2020-09-06 23:00] VITALS: BP 132/68
[2020-09-07 03:00] VITALS: BP 137/71
[2020-09-07 07:00] VITALS: BP 125/58
[2020-09-07] MEDS: ASCORBIC ACID 500 MG TABLET PO SCH ×3 (09:57→20:41)
[2020-09-07] MEDS: THIAMINE 100 MG TABLET. PO SCH ×3 (09:58→20:42)
[2020-09-07] MEDS: DEXAMETHASONE SOD PHOS 4 MG/ML VIAL IVP SCH (09:58)
--- NOTE | 2020-09-07 10:49 | PDOC ---
[employer] PROGRESS NOTE Date of Service DOS: DATE: 09/07/20 TIME: 10:48 Chief Complaint Chief Complaint Generalized weakness due to COVID-19 infection Leukopenia Normocytic anemia Hyponatremia Lactic acidemia Admit to medicine for further management Pulmonology consult Continue IV thiamine and vitamin C IV 4 mg dexamethasone Daily Patient is outside of window for IV Remdesivir Titrate O2 supplementation to maintain O2 saturation greater than 92% Lovenox for DVT prophylaxis Protonix GI prophylaxis ADA diet Full code Discussed with RN and SW Disposition inpatient management as above Surrogate decision maker is the History of Present Illness History of Present Illness 09/07/2020 No acute events overnight. Remains afebrile. Saturating 93% on 4 L nasal cannula. Sodium improved after IV fluids. No complaints voiced at this time. Still feels about the same. Patient's chart, labs, images were reviewed and discussed with RN 09/06/2020 No acute events overnight. Patient saturating 98% on 4 L nasal cannula. No signs of dyspnea. Sodium is low. We will give a bolus of IV fluid normal saline x1. Patient's chart, labs, images were reviewed and discussed with RN 09/05/2020 No acute events overnight. Patient's O2 saturation of 96% with increasing O2 requirements from 2 L nasal cannula to 4 L nasal cannula. Complains of dyspnea upon exertion when transporting to the commode. No chest pain or diarrhea. Patient's chart, labs, images were reviewed and discussed with RN 74 year old history of high cholesterol, hypertension, diabetes type 2, who presents to the ED today complaining of fatigue, generalized weakness, cough, shortness of breath, symptoms for 1 week. Patient states she was diagnosed with COVID-19 on Tuesday which is 4 days ago, she states she resides at home with her who is unable to take care of her because he also has COVID-19. Patient denies any fever. Vitals/I&O Vitals/I&O: Vital Signs Date Time Temp Pulse Resp B/P (MAP) Pulse Ox O2 Delivery O2 Flow Rate FiO2 09/07/20 07:00 96.8 70 18 125/58 (80) 91 Nasal Cannula 4.0 96.8 I & O 09/06/20 09/06/20 09/07/20 15:00 23:00 07:00 Intake Total 100 ml 200 ml Balance 100 ml 200 ml Physical Exam Lungs: Clear, Wheezing Labs Labs: Laboratory Tests Test 09/06/20 11:49 09/06/20 11:55 09/06/20 16:53 09/06/20 20:12 Glucose (Fingerstick) 206 mg/dL (70-99) 247 mg/dL (70-99) 261 mg/dL (70-99) White Blood Count 4.2 x10^3/uL (4.0-11.0) Red Blood Count 3.32 x10^6/uL (3.50-5.40) Hemoglobin 10.8 g/dL (12.0-15.5) Hematocrit 32.9 % (36.0-47.0) Mean Corpuscular Volume 99 fL (79-100) Mean Corpuscular Hemoglobin 33 pg (25-35) Mean Corpuscular Hemoglobin Concent 33 g/dL (31-37) Red Cell Distribution Width 21.2 % (11.5-14.5) Platelet Count 140 x10^3/uL (140-400) Neutrophils (%) (Auto) 84 % (31-73) Lymphocytes (%) (Auto) 4 % (24-48) Monocytes (%) (Auto) 11 % (0-9) Eosinophils (%) (Auto) 0 % (0-3) Basophils (%) (Auto) 0 % (0-3) Neutrophils # (Auto) 3.5 x10^3/uL (1.8-7.7) Lymphocytes # (Auto) 0.2 x10^3/uL (1.0-4.8) Monocytes # (Auto) 0.5 x10^3/uL (0.0-1.1) Eosinophils # (Auto) 0.0 x10^3/uL (0.0-0.7) Basophils # (Auto) 0.0 x10^3/uL (0.0-0.2) Sodium Level 136 mmol/L (136-145) Potassium Level 4.1 mmol/L (3.5-5.1) Chloride Level 101 mmol/L (98-107) Carbon Dioxide Level 24 mmol/L (21-32) Anion Gap 11 (6-14) Blood Urea Nitrogen 21 mg/dL (7-20) Creatinine 0.9 mg/dL (0.6-1.0) Estimated GFR (Cockcroft-Gault) 61.4 Glucose Level 187 mg/dL (70-99) Calcium Level 8.7 mg/dL (8.5-10.1) Magnesium Level 1.9 mg/dL (1.8-2.4) Test 09/07/20 07:40 Glucose (Fingerstick) 153 mg/dL (70-99) Assessment and Plan Assessmemt and Plan Problems Medical Problems: (1) Cough Status: Acute (2) Lab test positive for detection of COVID-19 virus Status: Acute (3) Pneumonia of both lower lobes Status: Acute (4) Shortness of breath Status: Acute (5) Weakness Status: Acute Comment Review of Relevant I have reviewed the following items nilo (where applicable) has been applied. Justifications for Admission Other Justification COVID infection ELIZABETH MONTEZ MD Sep 07, 2020 10:48
[2020-09-07 11:00] VITALS: BP 114/58
--- NOTE | 2020-09-07 13:32 | PDOC ---
PULMONARY PROGRESS NOTES DATE: 09/07/20 TIME: 13:23 Subjective Patient is resting comfortably on 5 L nasal cannula Denies any shortness of breath, reports green sputum with mildly productive cough Febrile overnight Bed to the chair today No overnight events per nursing Vitals Vital Signs Date Time Temp Pulse Resp B/P (MAP) Pulse Ox O2 Delivery O2 Flow Rate FiO2 09/07/20 11:00 95.3 80 18 114/58 (76) 88 Nasal Cannula 4.0 95.3 ROS: No Nausea, No Chest Pain, No Abdominal Pain, No Increase Cough General: Alert, Oriented X4 Lungs: Clear Cardiovascular: S1, S2 Abdomen: Soft, Non-tender Neuro Exam: Alert Extremities: No Edema Labs Laboratory Tests Test 09/05/20 16:27 09/05/20 21:03 09/06/20 08:27 09/06/20 11:49 Glucose (Fingerstick) 234 mg/dL (70-99) 189 mg/dL (70-99) 148 mg/dL (70-99) 206 mg/dL (70-99) Test 09/06/20 11:55 09/06/20 16:53 09/06/20 20:12 09/07/20 07:40 White Blood Count 4.2 x10^3/uL (4.0-11.0) Red Blood Count 3.32 x10^6/uL (3.50-5.40) Hemoglobin 10.8 g/dL (12.0-15.5) Hematocrit 32.9 % (36.0-47.0) Mean Corpuscular Volume 99 fL (79-100) Mean Corpuscular Hemoglobin 33 pg (25-35) Mean Corpuscular Hemoglobin Concent 33 g/dL (31-37) Red Cell Distribution Width 21.2 % (11.5-14.5) Platelet Count 140 x10^3/uL (140-400) Neutrophils (%) (Auto) 84 % (31-73) Lymphocytes (%) (Auto) 4 % (24-48) Monocytes (%) (Auto) 11 % (0-9) Eosinophils (%) (Auto) 0 % (0-3) Basophils (%) (Auto) 0 % (0-3) Neutrophils # (Auto) 3.5 x10^3/uL (1.8-7.7) Lymphocytes # (Auto) 0.2 x10^3/uL (1.0-4.8) Monocytes # (Auto) 0.5 x10^3/uL (0.0-1.1) Eosinophils # (Auto) 0.0 x10^3/uL (0.0-0.7) Basophils # (Auto) 0.0 x10^3/uL (0.0-0.2) Sodium Level 136 mmol/L (136-145) Potassium Level 4.1 mmol/L (3.5-5.1) Chloride Level 101 mmol/L (98-107) Carbon Dioxide Level 24 mmol/L (21-32) Anion Gap 11 (6-14) Blood Urea Nitrogen 21 mg/dL (7-20) Creatinine 0.9 mg/dL (0.6-1.0) Estimated GFR (Cockcroft-Gault) 61.4 Glucose Level 187 mg/dL (70-99) Calcium Level 8.7 mg/dL (8.5-10.1) Magnesium Level 1.9 mg/dL (1.8-2.4) Glucose (Fingerstick) 247 mg/dL (70-99) 261 mg/dL (70-99) 153 mg/dL (70-99) Laboratory Tests Test 09/06/20 16:53 09/06/20 20:12 09/07/20 07:40 Glucose (Fingerstick) 247 mg/dL (70-99) 261 mg/dL (70-99) 153 mg/dL (70-99) Medications Active Scripts Medications Dose Route/Sig Max Daily Dose Days Date Category Diazepam 5 Mg Tablet 5 Mg PO DAILY 07/18/19 Reported Metoprolol Tartrate 100 Mg Tablet 100 Mg PO DAILY 07/18/19 Reported Losartan Potassium 50 Mg Tablet 50 Mg PO DAILY 07/18/19 Reported Aspirin 81 Mg Tab.chew 81 Mg PO DAILY 07/18/19 Reported Prednisone 20 Mg Tablet 10 Mg PO DAILYWBKFT 07/18/19 Reported Protonix (Pantoprazole Sodium) 20 Mg Tablet.dr 1 Tab PO DAILY 07/18/19 Reported Folic Acid 20 Mg Capsule 1 Cap PO DAILY 30 07/18/19 Reported Furosemide 40 Mg Tablet 40 Mg PO DAILY 07/18/19 Reported Magnesium Oxide 400 Mg Tablet 400 Mg PO DAILY 07/18/19 Reported Metformin Hcl Er (Metformin Hcl) 500 Mg Tab.er.24h 500 Mg PO BIDWMEALS 07/18/19 Reported Allopurinol 100 Mg Tablet 100 Mg PO BID 07/18/19 Reported Estradiol 0.5 Mg Tablet 0.5 Mg PO DAILY 07/18/19 Reported Spironolactone 25 Mg Tablet 25 Mg PO DAILY 07/18/19 Reported Levothyroxine Sodium 25 Mcg Tablet 75 Mcg PO DAILYAC PRN 07/18/19 Reported Comments CTA chest IMPRESSION: 1. No evidence of pulmonary thromboembolic disease. 2. Patchy bilateral consolidations, likely multifocal infection Impression . IMPRESSION: 1. Acute hypoxemic respiratory failure secondary to COVID-19 viral pneumonia. 2. COVID-[address] angiogram revealing no evidence of pulmonary embolism. 4. 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 The patient receiving IV infusion on a monthly basis. 5. Status post port for above. 6. Status post IV monoclonal antibody last Tuesday for COVID-19. Plan . PLAN: Continue supplemental oxygen to keep oxygen saturations greater than 92% Continue Levaquin for antibiotics Follow cultures, no growth to date Continue dexamethasone with slow taper will need full 10-day course Physical therapy/Occupational Therapy DVT/GI prophylaxis D/W BERT CLARKE MD Sep 07, 2020 13:32
[2020-09-07] MEDS ORDERED: levOFLOXacin PER PHARMACY. MC PRN (13:45)
[2020-09-07 15:00] VITALS: BP 141/65
[2020-09-07 19:00] VITALS: BP 126/58
[2020-09-07] MEDS: LACTOBACILLUS RHAMNOSUS GG 1 CAPSULE. PO SCH (20:41)
[2020-09-07] MEDS: ENOXAPARIN 40 MG/0.4 ML SYRINGE. SQ SCH (20:42)
[2020-09-07 23:00] VITALS: BP 133/62
[2020-09-08 03:00] VITALS: BP 130/60
[2020-09-08] MEDS: THIAMINE 100 MG TABLET. PO SCH ×3 (05:44→21:34)
[2020-09-08 07:57] VITALS: BP 141/64
[2020-09-08] MEDS: LACTOBACILLUS RHAMNOSUS GG 1 CAPSULE. PO SCH ×2 (08:58→21:34)
[2020-09-08] MEDS: ASCORBIC ACID 500 MG TABLET PO SCH ×2 (08:58→13:30)
[2020-09-08] MEDS: DEXAMETHASONE SOD PHOS 4 MG/ML VIAL IVP SCH (08:59)
--- NOTE | 2020-09-08 11:36 | PDOC ---
PULMONARY PROGRESS NOTES DATE: 09/08/20 TIME: 11:36 Subjective Not more short of air Patient is resting comfortably on 5 L nasal cannula Febrile overnight Bed to the chair today No overnight events per nursing Vitals Vital Signs Date Time Temp Pulse Resp B/P (MAP) Pulse Ox O2 Delivery O2 Flow Rate FiO2 09/08/20 08:10 Nasal Cannula 4.0 09/08/20 07:57 97.0 69 20 141/64 (89) 99 97.0 ROS: No Nausea, No Chest Pain, No Abdominal Pain, No Increase Cough General: Alert, Oriented X4 Lungs: Clear Cardiovascular: S1, S2 Abdomen: Soft, Non-tender Neuro Exam: Alert Extremities: No Edema Labs Laboratory Tests Test 09/06/20 11:49 09/06/20 11:55 09/06/20 16:53 09/06/20 20:12 Glucose (Fingerstick) 206 mg/dL (70-99) 247 mg/dL (70-99) 261 mg/dL (70-99) White Blood Count 4.2 x10^3/uL (4.0-11.0) Red Blood Count 3.32 x10^6/uL (3.50-5.40) Hemoglobin 10.8 g/dL (12.0-15.5) Hematocrit 32.9 % (36.0-47.0) Mean Corpuscular Volume 99 fL (79-100) Mean Corpuscular Hemoglobin 33 pg (25-35) Mean Corpuscular Hemoglobin Concent 33 g/dL (31-37) Red Cell Distribution Width 21.2 % (11.5-14.5) Platelet Count 140 x10^3/uL (140-400) Neutrophils (%) (Auto) 84 % (31-73) Lymphocytes (%) (Auto) 4 % (24-48) Monocytes (%) (Auto) 11 % (0-9) Eosinophils (%) (Auto) 0 % (0-3) Basophils (%) (Auto) 0 % (0-3) Neutrophils # (Auto) 3.5 x10^3/uL (1.8-7.7) Lymphocytes # (Auto) 0.2 x10^3/uL (1.0-4.8) Monocytes # (Auto) 0.5 x10^3/uL (0.0-1.1) Eosinophils # (Auto) 0.0 x10^3/uL (0.0-0.7) Basophils # (Auto) 0.0 x10^3/uL (0.0-0.2) Sodium Level 136 mmol/L (136-145) Potassium Level 4.1 mmol/L (3.5-5.1) Chloride Level 101 mmol/L (98-107) Carbon Dioxide Level 24 mmol/L (21-32) Anion Gap 11 (6-14) Blood Urea Nitrogen 21 mg/dL (7-20) Creatinine 0.9 mg/dL (0.6-1.0) Estimated GFR (Cockcroft-Gault) 61.4 Glucose Level 187 mg/dL (70-99) Calcium Level 8.7 mg/dL (8.5-10.1) Magnesium Level 1.9 mg/dL (1.8-2.4) Test 09/07/20 07:40 09/07/20 11:18 09/07/20 16:32 09/07/20 20:09 Glucose (Fingerstick) 153 mg/dL (70-99) 218 mg/dL (70-99) 300 mg/dL (70-99) 308 mg/dL (70-99) Test 09/08/20 07:35 09/08/20 11:04 Glucose (Fingerstick) 195 mg/dL (70-99) 191 mg/dL (70-99) Laboratory Tests Test 09/07/20 16:32 09/07/20 20:09 09/08/20 07:35 09/08/20 11:04 Glucose (Fingerstick) 300 mg/dL (70-99) 308 mg/dL (70-99) 195 mg/dL (70-99) 191 mg/dL (70-99) Medications Active Scripts Medications Dose Route/Sig Max Daily Dose Days Date Category Diazepam 5 Mg Tablet 5 Mg PO DAILY 07/18/19 Reported Metoprolol Tartrate 100 Mg Tablet 100 Mg PO DAILY 07/18/19 Reported Losartan Potassium 50 Mg Tablet 50 Mg PO DAILY 07/18/19 Reported Aspirin 81 Mg Tab.chew 81 Mg PO DAILY 07/18/19 Reported Prednisone 20 Mg Tablet 10 Mg PO DAILYWBKFT 07/18/19 Reported Protonix (Pantoprazole Sodium) 20 Mg Tablet.dr 1 Tab PO DAILY 07/18/19 Reported Folic Acid 20 Mg Capsule 1 Cap PO DAILY 30 07/18/19 Reported Furosemide 40 Mg Tablet 40 Mg PO DAILY 07/18/19 Reported Magnesium Oxide 400 Mg Tablet 400 Mg PO DAILY 07/18/19 Reported Metformin Hcl Er (Metformin Hcl) 500 Mg Tab.er.24h 500 Mg PO BIDWMEALS 07/18/19 Reported Allopurinol 100 Mg Tablet 100 Mg PO BID 07/18/19 Reported Estradiol 0.5 Mg Tablet 0.5 Mg PO DAILY 07/18/19 Reported Spironolactone 25 Mg Tablet 25 Mg PO DAILY 07/18/19 Reported Levothyroxine Sodium 25 Mcg Tablet 75 Mcg PO DAILYAC PRN 07/18/19 Reported Comments CTA chest IMPRESSION: 1. No evidence of pulmonary thromboembolic disease. 2. Patchy bilateral consolidations, likely multifocal infection Impression . IMPRESSION: 1. Acute hypoxemic respiratory failure secondary to COVID-19 viral pneumonia. 2. COVID-[address] angiogram revealing no evidence of pulmonary embolism. 4. 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 The patient receiving IV infusion on a monthly basis. 5. Status post port for above. 6. Status post IV monoclonal antibody last Tuesday for COVID-19. Plan . We will continue current support PT OT Continue supplemental oxygen to keep oxygen saturations greater than 92% Continue Levaquin for antibiotics Follow cultures, no growth to date Continue dexamethasone with slow taper will need full 10-day course DVT/GI prophylaxis D/W BERT CLARKE MD Sep 08, 2020 11:36
[2020-09-08 11:59] VITALS: BP 136/66
--- NOTE | 2020-09-08 13:24 | PDOC ---
[employer] PROGRESS NOTE Date of Service DOS: DATE: 09/08/20 TIME: 13:19 Chief Complaint Chief Complaint Acute respiratory failure with hypoxia Generalized weakness due to COVID-19 infection Leukopenia Normocytic anemia Hyponatremia Lactic acidemia Admit to medicine for further management Pulmonology consult Continue IV thiamine and vitamin C IV 4 mg dexamethasone Daily Patient is outside of window for IV Remdesivir Titrate O2 supplementation to maintain O2 saturation greater than 92% Lovenox for DVT prophylaxis Protonix GI prophylaxis ADA diet Full code Discussed with RN and SW Disposition inpatient management as above Surrogate decision maker is the History of Present Illness History of Present Illness 09/07/2020 No acute events overnight. Remains afebrile. Saturating 93% on 4 L nasal cannula. Sodium improved after IV fluids. No complaints voiced at this time. Still feels about the same. Patient's chart, labs, images were reviewed and discussed with RN 09/06/2020 No acute events overnight. Patient saturating 98% on 4 L nasal cannula. No signs of dyspnea. Sodium is low. We will give a bolus of IV fluid normal saline x1. Patient's chart, labs, images were reviewed and discussed with RN 09/05/2020 No acute events overnight. Patient's O2 saturation of 96% with increasing O2 requirements from 2 L nasal cannula to 4 L nasal cannula. Complains of dyspnea upon exertion when transporting to the commode. No chest pain or diarrhea. Patient's chart, labs, images were reviewed and discussed with RN Ms Jones is a 74 yo w/ PMHx HLD, hypertension, diabetes type 2, who presents to the ED complaining of fatigue, generalized weakness, cough, shortness of breath, symptoms for 1 week. Patient states she was diagnosed with COVID-19 on Tuesday which is 4 days ago, she states she resides at home with her who is unable to take care of her because he also has COVID-19. Patient denies any fever. Afebrile. Feels a little stronger. Still requiring 4 L nasal cannula oxygen with minimal movement. Vitals/I&O Vitals/I&O: Vital Signs Date Time Temp Pulse Resp B/P (MAP) Pulse Ox O2 Delivery O2 Flow Rate FiO2 09/08/20 11:59 97.4 64 20 136/66 (89) 97 Nasal Cannula 5.0 97.4 I & O 09/07/20 09/07/20 09/08/20 15:00 23:00 07:00 Intake Total 450 ml 300 ml 150 ml Balance 450 ml 300 ml 150 ml Physical Exam Lungs: Clear Labs Labs: Laboratory Tests Test 09/07/20 16:32 09/07/20 20:09 09/08/20 07:35 09/08/20 11:04 Glucose (Fingerstick) 300 mg/dL (70-99) 308 mg/dL (70-99) 195 mg/dL (70-99) 191 mg/dL (70-99) Assessment and Plan Assessmemt and Plan Problems Medical Problems: (1) Cough Status: Acute (2) Lab test positive for detection of COVID-19 virus Status: Acute (3) Pneumonia of both lower lobes Status: Acute (4) Shortness of breath Status: Acute (5) Weakness Status: Acute Comment Review of Relevant I have reviewed the following items nilo (where applicable) has been applied. Medications: Current Medications Medications (Trade) Dose Ordered Sig/Aidan Route PRN Reason Start Time Stop Time Status Last Admin Dose Admin Lactobacillus Rhamnosus (Culturelle) 1 cap BID PO 09/07/20 21:00 09/08/20 08:58 Justifications for Admission Other Justification COVID infection SARA ULRICH MD Sep 08, 2020 13:24
[2020-09-08 15:57] VITALS: BP 158/75
--- NOTE | 2020-09-08 16:30 | NUR ---
SW following for discharge planning. Spoke with RN and reviewed chart. Pt from home with spouse. PT recommendation is for SNU. Spoke with pt. [facility] as [facility] is [facility]. Patient choice of vendor form completed. Pt stated her preference is still home with HH but that she will think about it tonight. LVM for spouse Mau ([phone]). Pt on 5l 02. SW following.
[2020-09-08 19:25] VITALS: BP 121/68
[2020-09-08] MEDS: ASCORBIC ACID 1,000 MG TABLET PO SCH (21:34)
[2020-09-08] MEDS: ENOXAPARIN 40 MG/0.4 ML SYRINGE. SQ SCH (21:34)
[2020-09-08 23:13] VITALS: BP 104/50
[2020-09-09 03:44] VITALS: BP 133/60
[2020-09-09] MEDS: THIAMINE 100 MG TABLET. PO SCH ×2 (06:10→14:28)
[2020-09-09 07:00] VITALS: BP 113/56
[2020-09-09] MEDS: ASCORBIC ACID 1,000 MG TABLET PO SCH ×2 (08:42→14:28)
[2020-09-09] MEDS: LACTOBACILLUS RHAMNOSUS GG 1 CAPSULE. PO SCH (08:43)
[2020-09-09] MEDS: DEXAMETHASONE SOD PHOS 4 MG/ML VIAL IVP SCH (08:43)
--- NOTE | 2020-09-09 10:50 | PDOC ---
PULMONARY PROGRESS NOTES DATE: 09/09/20 TIME: 10:49 Subjective Not more short of air Patient is resting comfortably on 2 L nasal cannula Febrile overnight Bed to the chair today No overnight events per nursing Vitals Vital Signs Date Time Temp Pulse Resp B/P (MAP) Pulse Ox O2 Delivery O2 Flow Rate FiO2 09/09/20 07:46 Nasal Cannula 2.0 09/09/20 07:00 96.8 77 18 113/56 (75) 97 96.8 ROS: No Nausea, No Chest Pain, No Abdominal Pain, No Increase Cough General: Alert, Oriented X4 Lungs: Clear Cardiovascular: S1, S2 Abdomen: Soft, Non-tender Neuro Exam: Alert Extremities: No Edema Labs Laboratory Tests Test 09/07/20 11:18 09/07/20 16:32 09/07/20 20:09 09/08/20 07:35 Glucose (Fingerstick) 218 mg/dL (70-99) 300 mg/dL (70-99) 308 mg/dL (70-99) 195 mg/dL (70-99) Test 09/08/20 11:04 09/08/20 16:41 09/08/20 20:55 09/09/20 07:55 Glucose (Fingerstick) 191 mg/dL (70-99) 245 mg/dL (70-99) 305 mg/dL (70-99) 131 mg/dL (70-99) Laboratory Tests Test 09/08/20 11:04 09/08/20 16:41 09/08/20 20:55 09/09/20 07:55 Glucose (Fingerstick) 191 mg/dL (70-99) 245 mg/dL (70-99) 305 mg/dL (70-99) 131 mg/dL (70-99) Medications Active Scripts Medications Dose Route/Sig Max Daily Dose Days Date Category Diazepam 5 Mg Tablet 5 Mg PO DAILY 07/18/19 Reported Metoprolol Tartrate 100 Mg Tablet 100 Mg PO DAILY 07/18/19 Reported Losartan Potassium 50 Mg Tablet 50 Mg PO DAILY 07/18/19 Reported Aspirin 81 Mg Tab.chew 81 Mg PO DAILY 07/18/19 Reported Prednisone 20 Mg Tablet 10 Mg PO DAILYWBKFT 07/18/19 Reported Protonix (Pantoprazole Sodium) 20 Mg Tablet.dr 1 Tab PO DAILY 07/18/19 Reported Folic Acid 20 Mg Capsule 1 Cap PO DAILY 30 07/18/19 Reported Furosemide 40 Mg Tablet 40 Mg PO DAILY 07/18/19 Reported Magnesium Oxide 400 Mg Tablet 400 Mg PO DAILY 07/18/19 Reported Metformin Hcl Er (Metformin Hcl) 500 Mg Tab.er.24h 500 Mg PO BIDWMEALS 07/18/19 Reported Allopurinol 100 Mg Tablet 100 Mg PO BID 07/18/19 Reported Estradiol 0.5 Mg Tablet 0.5 Mg PO DAILY 07/18/19 Reported Spironolactone 25 Mg Tablet 25 Mg PO DAILY 07/18/19 Reported Levothyroxine Sodium 25 Mcg Tablet 75 Mcg PO DAILYAC PRN 07/18/19 Reported Comments CTA chest IMPRESSION: 1. No evidence of pulmonary thromboembolic disease. 2. Patchy bilateral consolidations, likely multifocal infection Impression . IMPRESSION: 1. Acute hypoxemic respiratory failure secondary to COVID-19 viral pneumonia. 2. COVID-[address] angiogram revealing no evidence of pulmonary embolism. 4. 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 The patient receiving IV infusion on a monthly basis. 5. Status post port for above. 6. Status post IV monoclonal antibody last Tuesday for COVID-19. Plan . We will continue current support PT OT Continue supplemental oxygen to keep oxygen saturations greater than 92% Continue Levaquin for antibiotics Follow cultures, no growth to date Continue dexamethasone with slow taper will need full 10-day course DVT/GI prophylaxis D/W RN Pt down to 2 litres , ok with dc plans, will see VARSHA PUGA MD Sep 09, 2020 10:50
[2020-09-09 11:00] VITALS: BP 124/57
[2020-09-09] MEDS ORDERED: DEXA4TAB63 PO (11:49)
[2020-09-09] MEDS ORDERED: LEVO500T8 PO (11:49)
--- NOTE | 2020-09-09 11:50 | SNU/HH DC ---
DISCHARGE ORDERS DISCHARGE INFORMATION: DISCHARGE DATE: Sep 09, 2020 FINAL DIAGNOSIS Problems Medical Problems: (1) Cough Status: Acute (2) Lab test positive for detection of COVID-19 virus Status: Acute (3) Pneumonia of both lower lobes Status: Acute (4) Shortness of breath Status: Acute (5) Weakness Status: Acute CONDITION ON DISCHARGE: Stable CODE STATUS: Code Status: Full LONGTERM: SNF STAY <30 DAYS: Yes POST DISCHARGE ORDERS: ACTIVITY ORDERS: No restrictions, Resume previous activity, Activity as tolerated WEIGHT BEARING STATUS: No restrictions, As tolerated DIET AFTER DISCHARGE: Cardiac WOUND/INCISION CARE: No wound care needed CHECKS AFTER DISCHARGE: CHECKS AFTER DISCHARGE: Check blood press - daily, Check blood sugar, ac/hs TREATMENT/EQUIPMENT ORDERS: ADAPTIVE EQUIPMENT NEEDED: None Physical Therapy For: Evalulation/Treatment Occupational Therapy For: Evaluation/Treatment DISCHARGE MEDICATIONS: Home Meds Active Scripts Dexamethasone (Decadron) 4 Mg Tablet, 1 TAB PO DAILY for COVID 19 for 10 Days, #8 TAB 0 Refills 6 days of 4mg, then 4 days of 2mg, then stop Prov:SARA ULRICH MD 09/09/20 Levofloxacin (LEVOFLOXACIN) 500 Mg Tablet, 500 MG PO DAILY06 for Pneumonia for 3 Days, #3 TAB Prov:SARA ULRICH MD 09/09/20 Reported Medications Aspirin (ASPIRIN) 81 Mg Tab.chew, 81 MG PO DAILY for heart, TAB.CHEW 07/18/19 Pantoprazole Sodium (PROTONIX) 20 Mg Tablet.dr, 1 TAB PO DAILY for GERD, #30 TAB 07/18/19 Folic Acid (FOLIC ACID) 20 Mg Capsule, 1 CAP PO DAILY for supplementation for 30 Days, #30 CAP 0 Refills 07/18/19 Magnesium Oxide (Magnesium Oxide) 400 Mg Tablet, 400 MG PO DAILY for mag replacement, TAB 07/18/19 Allopurinol (ALLOPURINOL) 100 Mg Tablet, 100 MG PO BID for gout, TAB 07/18/19 Levothyroxine Sodium (LEVOTHYROXINE SODIUM) 25 Mcg Tablet, 75 MCG PO DAILYAC PRN for hypothyroidism, #30 TAB 0 Refills 07/18/19 Discontinued Reported Medications Diazepam (DIAZEPAM) 5 Mg Tablet, 5 MG PO DAILY for anxiety, TAB 07/18/19 Metoprolol Tartrate (METOPROLOL TARTRATE) 100 Mg Tablet, 100 MG PO DAILY for FOR HYPERTENSION, #60 TAB 0 Refills 07/18/19 Losartan Potassium (LOSARTAN POTASSIUM) 50 Mg Tablet, 50 MG PO DAILY for HYPERTENSION, TAB 07/18/19 Prednisone (PREDNISONE) 20 Mg Tablet, 10 MG PO DAILYWBKFT for inflammation, TAB 07/18/19 Furosemide (FUROSEMIDE) 40 Mg Tablet, 40 MG PO DAILY for fluid retention, TAB 07/18/19 Metformin Hcl (METFORMIN HCL ER) 500 Mg Tab.er.24h, 500 MG PO BIDWMEALS for diabetes, TAB 07/18/19 Estradiol (ESTRADIOL) 0.5 Mg Tablet, 0.5 MG PO DAILY for estrogen derivitive, TAB 07/18/19 Spironolactone (SPIRONOLACTONE) 25 Mg Tablet, 25 MG PO DAILY for diuretic, TAB 07/18/19 SARA ULRICH MD Sep 09, 2020 11:50
--- NOTE | 2020-09-09 11:50 | PDOC ---
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 The patient receiving IV infusion on a monthly basis. Plan: PT OT Continue supplemental oxygen to keep oxygen saturations greater than 92% Continue Levaquin for antibiotics Follow cultures, no growth to date Continue dexamethasone with slow taper will need full 10-day course Pulmonology consult Continue IV thiamine and vitamin C IV 4 mg dexamethasone Daily Patient is outside of window for IV Remdesivir ADA diet Full code Discussed with RN and SW Disposition inpatient management as above Surrogate decision maker is the History of Present Illness History of Present Illness Ms Jones is a 74 yo w/ PMHx HLD, hypertension, diabetes type 2, who presents to the ED complaining of fatigue, generalized weakness, cough, shortness of breath, symptoms for 1 week. Patient states she was diagnosed with COVID-19 on Tuesday which is 4 days ago, she states she resides at home with her who is unable to take care of her because he also has COVID-19. Patient denies any fever. 09/05: No acute events overnight. Patient's O2 saturation of 96% with increasing O2 requirements from 2 L nasal cannula to 4 L nasal cannula. Complains of dyspnea upon exertion when transporting to the commode. 09/06: No acute events overnight. Patient saturating 98% on 4 L nasal cannula. No signs of dyspnea. Sodium is low. We will give a bolus of IV fluid normal saline x1. 09/07: No acute events overnight. Remains afebrile. Saturating 93% on 4 L nasal cannula. Sodium improved after IV fluids. No complaints voiced at this time. Still feels about the same. 09/08: Afebrile. Feels a little stronger. Still requiring 4 L nasal cannula oxygen with minimal movement. Afebrile. On 4L NCO2. Feeling stronger today. Due for next IVIG on 09/21/20. Vitals/I&O Vitals/I&O: Vital Signs Date Time Temp Pulse Resp B/P (MAP) Pulse Ox O2 Delivery O2 Flow Rate FiO2 09/09/20 07:46 Nasal Cannula 2.0 09/09/20 07:00 96.8 77 18 113/56 (75) 97 96.8 I & O 09/08/20 09/08/20 09/09/20 15:00 23:00 07:00 Intake Total 200 ml 210 ml Balance 200 ml 210 ml Physical Exam Lungs: Clear Labs Labs: Laboratory Tests Test 09/08/20 16:41 09/08/20 20:55 09/09/20 07:55 09/09/20 11:26 Glucose (Fingerstick) 245 mg/dL (70-99) 305 mg/dL (70-99) 131 mg/dL (70-99) 212 mg/dL (70-99) Assessment and Plan Assessmemt and Plan Problems Medical Problems: (1) Cough Status: Acute (2) Lab test positive for detection of COVID-19 virus Status: Acute (3) Pneumonia of both lower lobes Status: Acute (4) Shortness of breath Status: Acute (5) Weakness Status: Acute Comment Review of Relevant I have reviewed the following items nilo (where applicable) has been applied. Medications: Current Medications Medications (Trade) Dose Ordered Sig/Aidan Route PRN Reason Start Time Stop Time Status Last Admin Dose Admin Ascorbic Acid (Vitamin C) 3,000 mg TID PO 09/08/20 21:00 09/09/20 08:42 Justifications for Admission Other Justification COVID infection SARA ULRICH MD Sep 09, 2020 11:50
--- NOTE | 2020-09-09 12:51 | NUR ---
SW following for discharge planning. Spoke with RN and reviewed chart. Pt to discharge to [facility] today, 09/09 at 1500. Discharge orders phoned and faxed. WC transportation arranged with 02 by the facility. Pt notified. LVM for spouse. RN to call to report. packet of clinicals ready to be sent with pt. No further SW needs at this time.
[2020-09-09] MEDS ORDERED: HEPARIN PF 500 UNIT/5 ML DISP.SYRIN. IVP ONE (13:30)
--- NOTE | 2020-09-09 13:31 | PDOC3 ---
Discharge Summary Visit Information Date of Admission: Sep 03, 2020 Date of Discharge: Sep 09, 2020 Admitting Diagnosis: COVID 19 pneumonia, Hypoxic resp failure Final Diagnosis Problems Medical Problems: (1) Cough Status: Acute (2) Lab test positive for detection of COVID-19 virus Status: Acute (3) Pneumonia of both lower lobes Status: Acute (4) Shortness of breath Status: Acute (5) Weakness Status: Acute Brief Hospital Course Allergies Allergies Coded Allergies Type Severity Reaction Last Updated Verified Penicillins Allergy Intermediate 07/18/19 Yes Tetracyclines Allergy Intermediate rash 07/18/19 Yes adhesive tape Allergy Intermediate rash 07/18/19 Yes cephalexin Allergy Intermediate 09/04/20 Yes lisinopril Allergy Intermediate cough 07/18/19 Yes sulfamethoxazole Allergy Intermediate 07/18/19 Yes trimethoprim Allergy Intermediate 07/18/19 Yes Vital Signs Vital Signs Date Time Temp Pulse Resp B/P (MAP) Pulse Ox O2 Delivery O2 Flow Rate FiO2 09/09/20 11:00 97.2 82 18 124/57 (79) 93 Nasal Cannula 2.0 97.2 Lab Results Laboratory Tests Test 09/07/20 16:32 09/07/20 20:09 09/08/20 07:35 09/08/20 11:04 Glucose (Fingerstick) 300 mg/dL (70-99) 308 mg/dL (70-99) 195 mg/dL (70-99) 191 mg/dL (70-99) Test 09/08/20 16:41 09/08/20 20:55 09/09/20 07:55 09/09/20 11:26 Glucose (Fingerstick) 245 mg/dL (70-99) 305 mg/dL (70-99) 131 mg/dL (70-99) 212 mg/dL (70-99) Laboratory Tests Test 09/08/20 16:41 09/08/20 20:55 09/09/20 07:55 09/09/20 11:26 Glucose (Fingerstick) 245 mg/dL (70-99) 305 mg/dL (70-99) 131 mg/dL (70-99) 212 mg/dL (70-99) Brief Hospital Course Ms Jones is a 74 yo w/ PMHx HLD, hypertension, diabetes type 2, who presents to the ED complaining of fatigue, generalized weakness, cough, shortness of breath, symptoms for 1 week. Patient states she was diagnosed with COVID-19 on Tuesday which is 4 days ago, she states she resides at home with her who is unable to take care of her because he also has COVID-19. Patient denies any fever. 09/05: No acute events overnight. Patient's O2 saturation of 96% with increasing O2 requirements from 2 L nasal cannula to 4 L nasal cannula. Complains of dyspnea upon exertion when transporting to the commode. 09/06: No acute events overnight. Patient saturating 98% on 4 L nasal cannula. No signs of dyspnea. Sodium is low. We will give a bolus of IV fluid normal saline x1. 09/07: No acute events overnight. Remains afebrile. Saturating 93% on 4 L nasal cannula. Sodium improved after IV fluids. No complaints voiced at this time. Still feels about the same. 09/08: Afebrile. Feels a little stronger. Still requiring 4 L nasal cannula oxygen with minimal movement. Afebrile. On 4L NCO2. Feeling stronger today. Due for next IVIG on 09/21/20. 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 The patient receiving IV infusion on a monthly basis. Plan: PT OT Continue supplemental oxygen to keep oxygen saturations greater than 92% Continue Levaquin for antibiotics Follow cultures, no growth to date Continue dexamethasone with slow taper will need full 10-day course Pulmonology consult Continue IV thiamine and vitamin C IV 4 mg dexamethasone Daily Patient is outside of window for IV Remdesivir ADA diet Full code Discussed with RN and SW Disposition inpatient management as above Surrogate decision maker is the Greater than 30 minutes spent on d/c to SNF - [facility] Discharge Information Condition at Discharge: Improved Follow Up: Weeks (1) Disposition/Orders: D/C to Home Scheduled Allopurinol (Allopurinol) 100 Mg Tablet, 100 MG PO BID for gout, (Reported) Entered as Reported by: OSEAS WADDELL on 07/18/192057 Last Action: Reviewed on 09/04/20445 by Jessica Cali Aspirin (Aspirin) 81 Mg Tab.chew, 81 MG PO DAILY for heart, (Reported) Entered as Reported by: OSEAS WADDELL on 07/18/192057 Last Action: Reviewed on 09/04/20445 by Jessica Cali Dexamethasone (Decadron) 4 Mg Tablet, 1 TAB PO DAILY for COVID 19 for 10 Days, #8 Ref 0 6 days of 4mg, then 4 days of 2mg, then stop Prescribed by: SARA ULRICH MD on 09/09/20 1149 Folic Acid (Folic Acid) 20 Mg Capsule, 1 CAP PO DAILY for supplementation for 30 Days, #30 Ref 0 (Reported) Entered as Reported by: OSEAS WADDELL on 07/18/192057 Last Action: Reviewed on 09/04/20445 by Jessica Cali Levofloxacin (Levofloxacin) 500 Mg Tablet, 500 MG PO DAILY06 for Pneumonia for 3 Days, #3 Prescribed by: SARA ULRICH MD on 09/09/20 1149 Magnesium Oxide (Magnesium Oxide) 400 Mg Tablet, 400 MG PO DAILY for mag replacement, (Reported) Entered as Reported by: OSEAS WADDELL on 07/18/192057 Last Action: Reviewed on 09/04/20445 by Jessica Cali Pantoprazole Sodium (Protonix) 20 Mg Tablet.dr, 1 TAB PO DAILY for GERD, #30 (Reported) Entered as Reported by: OSEAS WADDELL on 07/18/192057 Last Action: Reviewed on 09/04/20445 by Jessica Cali Scheduled PRN Levothyroxine Sodium (Levothyroxine Sodium) 25 Mcg Tablet, 75 MCG PO DAILYAC PRN for hypothyroidism, #30 Ref 0 (Reported) Entered as Reported by: OSEAS WADDELL on 07/18/192057 Last Action: Reviewed on 09/04/20445 by Jessica Cali Discontinued Medications Diazepam (Diazepam) 5 Mg Tablet, 5 MG PO DAILY for anxiety, (Reported) Entered as Reported by: OSEAS WADDELL on 07/18/192057 Last Action: Reviewed on 09/04/20445 by Jessica Cali Estradiol (Estradiol) 0.5 Mg Tablet, 0.5 MG PO DAILY for estrogen derivitive, (Reported) Entered as Reported by: OSEAS WADDELL on 07/18/192057 Last Action: Reviewed on 09/04/20445 by Jessica Cali Furosemide (Furosemide) 40 Mg Tablet, 40 MG PO DAILY for fluid retention, (Reported) Entered as Reported by: OSEAS WADDELL on 07/18/192057 Losartan Potassium (Losartan Potassium) 50 Mg Tablet, 50 MG PO DAILY for HYPERTENSION, (Reported) Entered as Reported by: OSEAS WADDELL on 07/18/192057 Last Action: Reviewed on 09/04/20445 by Jessica Cali Metformin Hcl (Metformin Hcl Er) 500 Mg Tab.er.24h, 500 MG PO BIDWMEALS for diabetes, (Reported) Entered as Reported by: OSEAS WADDELL on 07/18/192057 Metoprolol Tartrate (Metoprolol Tartrate) 100 Mg Tablet, 100 MG PO DAILY for FOR HYPERTENSION, #60 Ref 0 (Reported) Entered as Reported by: OSEAS WADDELL on 07/18/192057 Last Action: Reviewed on 09/04/20445 by Jessica aCli Prednisone (Prednisone) 20 Mg Tablet, 10 MG PO DAILYWBKFT for inflammation, (Reported) Entered as Reported by: OSEAS WADDELL on 07/18/192057 Last Action: Reviewed on 09/04/20445 by Jessica Cali Spironolactone (Spironolactone) 25 Mg Tablet, 25 MG PO DAILY for diuretic, (Reported) Entered as Reported by: OSEAS WADDELL on 07/18/192057 Last Action: Reviewed on 09/04/20445 by Jessica Cali Justicifation of Admission Dx: Justifications for Admission: Justification of Admission Dx: Yes Respiratory Failure: Severe Resp Distress SARA ULRICH MD Sep 09, 2020 13:31
[2020-09-09 15:00] VITALS: BP 124/65
--- NOTE | 2020-09-09 15:04 | NUR ---
This RN called report to SIVA Cavazos of [facility] at [phone].
--- NOTE | 2020-09-09 15:31 | NUR ---
Pt left unit at approx 1530 by wheelchair via transportation. Port deaccessed, no complications noted. VSS. Discharge paperwork sent with pt at time of discharge.
== END 2020-09-09 15:36 | DRG 871 ==
LOC: ER 16:33 → 6 SOUTH 19:40
PROVIDERS: ADMIT Family Medicine; ATTEND Family Medicine
PROC: 5A0935A Assistance with Respiratory Ventilation, Less than 24 Consecutive Hours, High Flow/Velocity Cannula (ICD-10-PCS; principal; 2020-09-04)
DX: A41.9 Sepsis, unspecified organism (principal); U07.1 COVID-19; J96.01 Acute respiratory failure with hypoxia; J15.6 Pneumonia due to other Gram-negative bacteria; J12.82 Pneumonia due to coronavirus disease 2019; E87.1 Hypo-osmolality and hyponatremia; E87.2 Acidosis; D64.9 Anemia, unspecified; E03.9 Hypothyroidism, unspecified; E11.9 Type 2 diabetes mellitus without complications; E78.00 Pure hypercholesterolemia, unspecified; E78.5 Hyperlipidemia, unspecified; I10 Essential (primary) hypertension; Z86.61 Personal history of infections of the central nervous system; Z90.49 Acquired absence of other specified parts of digestive tract; Z90.710 Acquired absence of both cervix and uterus; Z95.2 Presence of prosthetic heart valve; Z88.0 Allergy status to penicillin; Z88.8 Allergy status to other drugs, medicaments and biological substances; Z88.1 Allergy status to other antibiotic agents; Z91.041 Radiographic dye allergy status; D72.819 Decreased white blood cell count, unspecified
CPT/HCPCS: 36415; 71045; 71275; 80048; 80053; 80307; 81001; 82728; 82962; 83605; 83615; 83735; 83880; 84100; 84145; 84443; 84484; 85007; 85025; 85379; 86140; 87040; 87077; 87086; 87205; 93005; 96361; 96365; 96375; J1100; J1642; J1650; J1956; J2270; J3411; J7030; J7050; J7060; Q9967; 97116-GP; 97530-GP; 99285-25; G0378